=== PATIENT | male | born 1955 | race African-American/Black ===

== ENCOUNTER 2016-08-07 08:34 | Inpatient (IN) ==
[2016-08-07] MEDS ORDERED: KETOROLAC 30 MG/1 ML VIAL IV STA (09:05)
[2016-08-07] MEDS ORDERED: methylPREDNISolone SOD SUC 125 MG/2 ML VIAL IV STA (09:05)
[2016-08-07] MEDS ORDERED: ONDANSETRON 4 MG/2 ML VIAL IV STA (09:05)
[2016-08-07] MEDS ORDERED: ALBUTEROL/IPRATROPIUM 3 ML NEB RESP TX STA (09:05)
[2016-08-07] MEDS ORDERED: ASPIRIN 325 MG TABLET PO STA (09:05)
--- NOTE | 2016-08-07 09:10 | EKG Report ---
Stationary ECG Study [facility] ER Test Date: 08/07/2016 8:45:57 AM Pat Name: GUY JOAQUIN Department: Room: Gender: M Card Painter: : 1955 Requested by: Salomón Ann Order Number: [id number] Reading MD: LALO WELCH Intervals [place] Rate: 111 P: 63 [place]: 134 QRS: 110 QRSD: 101 T: -18 QT: 304 QTc: 370 Interpretive Statements SINUS TACHYCARDIA WITH OCCASIONAL PVCS ANS PACS Electronically Signed On 08-08-16 12:02:07 CDT by LALO WELCH [email or web address]
--- NOTE | 2016-08-07 09:11 | Emergency Department Note ---
Arrival - Arrival Chief Complaint: Chest Pain Stated Complaint: SOB-CP ED Nursing Triage Note: pt to er 19 via wc with c/o having sob and cp, pt states onset at 0530 with pain to left chest. pt states he is on home 02 @ 2Lnc. Mode of Arrival: Wheelchair Limitations: No Limitations Source: Patient Time Seen by Provider: 08/07/16 09:05 - History of Present Illness HPI Narrative: This 60-year-old black male presents with a history of left-sided chest pain not associated with nausea, vomiting, or diaphoresis upon awakening today which resolved by the time he reached the emergency room. He denies a history of any cardiac disease but does have a significant history for sarcoid and associated asthma to the severity that he is on home O2. The patient describes the pain is along the left anterior axillary line with some degree of mechanical pertubation. He denies chills, fever, purulence, sinus symptoms, or significant increase in wheezing. Currently he appears medically stable Onset (ago): hour(s) (Patient presents 4 hours after onset of symptoms) Allergies/Adverse Reactions: Allergies Allergy/AdvReac Type Severity Reaction Status Date / Time No Known Allergies Allergy Unverified 05/16/16 23:30 Home Medications: Home Medications Medication Instructions Recorded Confirmed Type Albuterol Inhaler [Proventil 1 puff PO Q3-4H PRN 05/17/16 05/17/16 History Inhaler] Albuterol Neb [Proventil Neb] 1 packet PO Q3-4H PRN 05/17/16 05/17/16 History Fluticasone 50 Mcg Nasal [place] 1 puff PO DAILY 05/17/16 05/17/16 History [Flonase Nasal [place]] Fluticasone/Salmeterol 500-50 1 puff PO DAILY 05/17/16 05/17/16 History [Advair 500-50] Triamterene/Hydrochlorothiazid 1 tablet PO DAILY 05/17/16 05/17/16 History [Triamterene-Hctz 37.5-25 mg Tb] Cefuroxime Tab [Ceftin] 500 mg PO BID #14 tablet 05/20/16 Rx Montelukast Tab [Singulair Tab] 10 mg PO BID #60 tablet 05/20/16 Rx Pantoprazole Tab [Protonix Tab] 40 mg PO DAILY #30 tablet 05/20/16 Rx predniSONE TAB [PredniSONE] 20 mg PO DAILY #30 tablet 05/20/16 Rx Review of System - Review of System 12 point system: reviewed and no additional remarkable complaints except as stated - Review of System Constitutional: Present: as per HPI Respiratory: Present: as per HPI Cardiovascular: Present: as per HPI Gastrointestinal: Present: as per HPI Medical,Surgical,& Family Hx - Medical History Cardio: History of: Hypertension Respiratory: History of: Respiratory Problems (sarcoidosis) - Surgical History Abdominal Surgeries: Surgical HX of: Abdominal Surgery - Family History Family History: Reports;: Family Cancer, Family Hypertension - Social History Smoking Status: Never smoker Frequency of Alcohol Use: None Type of Drug Use: None Exam Physical Examination: GENERAL: Well developed, well nourished black male in no acute distress. HEENT: Normocephalic. No trauma. Moist mucous membranes. EOMI. PERRLA. ENT NML NECK: Supple. No adenopathy. CARDIAC: Regular. No murmurs. Heart rate 110 CHEST: Diffuse expiratory wheezes. No respiratory distress. O2 sat on room air 80%. Tender along the lower left anterior axillary line. ABDOMEN: Soft. Nontender. Active bowel sounds. EXTREMITIES: No trauma. Normal ROM. No pedal edema. SKIN: No diaphoresis. No rash. NEURO: Alert. Neuro intact. No focal deficits. Vital Signs: Vital Signs Temperature 97.8 F 08/07/16 08:42 Pulse Rate 109 H 08/07/16 08:42 Respiratory Rate 30 H 08/07/16 08:49 Blood Pressure 138/87 08/07/16 08:42 O2 Sat by Pulse Oximetry 79 L 08/07/16 08:42 Course - Reevaluation(s) Reevaluation #1: Discussed with patient the need for pulmonary cleanup as well as addressing cardiac problems including bump in troponins. - Consultations Consultation #1: Discussed with hospitalist service who will admit for further evaluation treatment. Results - Labs CBC & BMP: 08/07/16 08:48 08/07/16 08:48 Labs: I reviewed the laboratory and noted the elevated white blood cell count and bump in troponins - Impressions EKG: Sinus tachycardia at 110 with occasional PVC and frequent PACs with the appearance of an attempt to break into atrial fibrillation. Normal AR interval and QRS duration. Evidence of right ventricular hypertrophy. Nonspecific ST changes with no acute injury pattern noted. - Diagnostic Findings Procedure: Chest x-ray: image reviewed by me, report reviewed by me (Severe scarring especially of the right upper lobe secondary to sarcoid unchanged on interval comparison.) Disposition Clinical Impression: Exacerbation of asthma, Abnormal cardiac enzymes, Abnormal cardiac rhythm, Sarcoidosis Case discussed with: patient, patient's family Condition: Stable Time of Disposition: 10:10
[2016-08-07] MEDS ORDERED: TERBUTALINE 1 MG/1 ML VIAL SUBCUT ONE (09:13)
[2016-08-07] MEDS ORDERED: KETOROLAC 30 MG/1 ML VIAL ONE (09:13)
[2016-08-07] MEDS ORDERED: ONDANSETRON 4 MG/2 ML VIAL ONE (09:13)
[2016-08-07] MEDS ORDERED: methylPREDNISolone SOD SUC 125 MG/2 ML VIAL ONE (09:14)
[2016-08-07] MEDS ORDERED: ASPIRIN 325 MG TABLET ONE (09:14)
[2016-08-07 09:17] LABS: Basophils # 0.1 10*3/uL (0.0-0.2); Basophils % 0.5 % (0.0-0.8); Eosinophils # 0.1 10*3/uL (0.0-0.87); Eosinophils % 0.5 % (0.00-10.9); Hematocrit 49.1 VOL% (42.0-52.0); Hemoglobin 15.9 GM/DL (14.0-18.0); Immature Granulocytes % 2.6 %; Immature Granulocytes Absolute 0.34 #; Lymphocytes # 1.3 10*3/uL (1.4-4.0); Lymphocytes % 9.5 % (21.2-54.2); Mean Corpuscular HGB Conc 32.4 GM/DL (32-36); Mean Corpuscular Hemoglobin 30 PG (27-34); Mean Corpuscular Volume 92.1 FL (87-102); Monocytes % 7.7 % (1.7-12.7); Neutrophils # 10.4 10*3/uL (1.4-7.4); Neutrophils % 79.2 % (38.7-73.9); Platelet Count 181 T/CUMM (130-400); Red Blood Count 5.33 MC/CUMM (3.8-5.5); Red Cell Distribution Width 12.8 % (9.3-17.3); White Blood Count 13.1 T/CUMM (4-12)
[2016-08-07] MEDS: TERBUTALINE 1 MG/1 ML VIAL SUBCUT SCH ×2 (09:20→10:00)
[2016-08-07 09:25] LABS: PT Patient Result 10.7 SECS; Partial Thromboplastin Time 23.6 SECS (0-40)
[2016-08-07 09:29] LABS: Albumin 3.5 G/DL (3.4-5.0); Bilirubin,Total 1.1 MG/DL (0.2-1.0); Calcium 8.7 MG/DL (8.5-10.1); Osmolality,Calculated 288.1 MOS/KG (273-304); Potassium 4.1 MMOL/L (3.5-5.1); Total Protein 6.3 G/DL (6.4-8.3)
[2016-08-07 09:32] LABS: Troponin I Only 0.073 NG/ML (0.00-0.045)
--- NOTE | 2016-08-07 09:43 | XRay Report ---
Portable chest Date: 08/07/2016 Clinical history: Chest pain Comparison: 05/19/2016 Technique: Portable AP sitting chest Findings: The heart is borderline in size with uncoiling of the aorta. Bullous emphysema with extensive chronic scarring. Persistent multifocal irregular parenchymal densities persist with tenting of the diaphragm bilaterally. Chronic blunting of the costophrenic angles. No significant change in the appearance of the mediastinum or osseous structures. Impression: Bullous emphysema with chronic extensive interstitial scarring with no significant change in the appearance of the chest when compared to the previous exam. PROCEDURE INTERPRETED AT [facility] DEPARTMENT OF RADIOLOGY Final Report Signed by: Dr. Laisha Boateng
[2016-08-07] MEDS ORDERED: cefTRIAXone 1,000 MG in SODIUM CHLORIDE 0.9% 100 ML IV STA (10:11)
[2016-08-07 10:17] LABS: Apearance,Urine Slightly Hazy (Clear); Bilirubin,Urine Negative (Negative); Blood, Urine Negative (Negative); Glucose,Urine (UA) Negative (Negative); Hyaline Casts,Urine 1 /LPF (0-3); Ketones,Urine Negative (Negative); Mucus,Urine Occasional /LPF (Occasional); Nitrite,Urine Negative (Negative); Protein,Urine 100 MG/DL; RBC,Urine <1 /HPF (0-4); Squamous Epithelial Cell,Urine Occasional /HPF (0-10); Urine Color Yellow (Yellow); Urine Specific Gravity 1.019 (1.001-1.035); Urine Urobilinogen < 2.0 EU/DL (0.2-1.0); WBC,Urine 1 /HPF (0-6)
[2016-08-07 10:23] LABS: Barbiturates Screen,Urine Negative (Negative); Benzodiazepines Screen,Urine Negative (Negative); Cannabinoid Screen,Urine Negative (Negative); Opiate Screen,Urine Negative (Negative); Phencyclidine Screen,Urine Negative (Negative)
[2016-08-07] MEDS ORDERED: cefTRIAXone 1,000 MG VIAL ONE (10:28)
[2016-08-07] MEDS ORDERED: CEFUROXIME 500 MG TABLET PO PRN (10:52)
[2016-08-07] MEDS ORDERED: ALBUTEROL 0.63 MG/3 ML NEB RESP TX PRN (10:52)
[2016-08-07] MEDS ORDERED: ALBUTEROL 2.5 MG/3 ML NEB RESP TX PRN (10:52)
[2016-08-07] MEDS ORDERED: FLUTICASONE/SALMETEROL 500-50 DISKUS 14 DOSE INH SCH (11:00)
[2016-08-07] MEDS ORDERED: TRIAMTERENE/HCTZ 37.5-25 MG TABLET PO SCH (11:00)
[2016-08-07] MEDS ORDERED: methylPREDNISolone 4 MG TABLET PO SCH (11:00)
[2016-08-07] MEDS ORDERED: predniSONE 20 MG TABLET PO SCH (11:00)
--- NOTE | 2016-08-07 11:03 | Hospitalist History & Physical ---
<Olivia Mckeon - Last Filed: 08/07/16 10:57> Assessment and Plan - Time spent with patient Time spent with patient: Less than 30 minutes (1) Elevated troponin Status: Acute Assessment and plan: Patient has complex respiratory issues but in light of elevated troponin and abnormal EKG would be safe to go ahead and admit patient and get a cardiology consult. Further recommendations per Dr. Can Current Visit: Yes (2) Hypertension Status: Acute Assessment and plan: Blood pressures are stable so we will restart his home meds and monitor. Current Visit: No (3) Sarcoidosis Status: Acute Assessment and plan: chronic sarcoid being followed by dr jason. will cont his home regimen. Current Visit: No (4) Acute asthma exacerbation Status: Acute Assessment and plan: restart his home meds and add additional breathing treatments. pt still has some expiratory wheeze but he does feel better and feels this is his baseline. further recs per dr can. Current Visit: Yes History of Present Illness Chief complaint: Shortness of breath and chest pain History of present illness: 60-year-old -Niue[place] male with history of sarcoidosis and asthma presenting to the ED with complaints of shortness of breath, wheezing, and chest pain that started this morning. Patient is a patient of Dr. Jason's from pulmonary who normally takes steroids and inhaled breathing treatments regularly. He states when it was worsened this morning he got up and took his usual medicine with no decrease in his symptoms. Came to the emergency room and since then his chest pain has resolved. He described it as left-sided chest pain that was dull and continuous. He has a mild bump in his troponins and his EKG is showing some sinus tachycardia with PVCs, right-sided hypertrophy , and nonspecific ST and T-wave changes. This may be a slight change from the previous one in April when he was admitted for pneumonia. he received duonebs, rocephin, brethine, and solumedrol in ED. Upon exam he states he feels much better with no shortness of breath or chest pain. He does have some bilateral rails and expiratory wheeze. He denies headaches difficulty swallowing chest pain at this time, abdominal pain, or lower extremity edema. Dr. Can has been asked to admit to tune up his lungs and follow his abnormal EKG and troponins. Home Medications Medication Instructions Recorded Confirmed Type Albuterol Inhaler [Proventil 1 puff PO Q3-4H PRN 05/17/16 08/07/16 History Inhaler] Albuterol Neb [Proventil Neb] 1 packet PO Q3-4H PRN 05/17/16 08/07/16 History Fluticasone 50 Mcg Nasal [place] 1 puff PO QPM 05/17/16 08/07/16 History [Flonase Nasal [place]] Fluticasone/Salmeterol 500-50 1 puff PO QAM 05/17/16 08/07/16 History [Advair 500-50] Triamterene/Hydrochlorothiazid 1 tablet PO QAM 05/17/16 08/07/16 History [Triamterene-Hctz 37.5-25 mg Tb] predniSONE TAB [PredniSONE] 20 mg PO DAILY #30 tablet 05/20/16 08/07/16 Rx Cefuroxime Tab [Ceftin] 500 mg PO BID PRN 08/07/16 08/07/16 History methylPREDNISolone 8 mg PO QAM 08/07/16 08/07/16 History [Methylprednisolone] Allergies Allergy/AdvReac Type Severity Reaction Status Date / Time No Known Allergies Allergy Unverified 05/16/16 23:30 Medical,Surgical,& Family Hx - Medical History Cardio: History of: Hypertension Respiratory: History of: Asthma, Respiratory Problems (sarcoidosis) - Surgical History Abdominal Surgeries: Surgical HX of: Abdominal Surgery - Family History Family History: Reports;: Family Cancer, Family Hypertension - Social History Smoking Status: Never smoker Frequency of Alcohol Use: None Type of Drug Use: None Review of systems: A complete 10 system review of systems was obtained and pertinent positives and negatives are listed in HPI Exam - Constitutional Exam: 60-year-old -[place] male, no acute distress, alert and oriented Family is present Constitutional System: No distress. No tremulousness. Head: Normocephalic, atraumatic. Ears, Nose and Throat System: No evidence of Otitis or Mastoiditis. No epistaxis or discharge Eyes System: Pupils equal, round, and reactive. Extraocular muscles intact. Neck: Supple, without adenopathy, No jugular venous distention. No thyromegaly, neck mass, or prior surgery apparent. Respiratory System: Chest bilateral rales and expiratory wheeze to auscultation. Cardiovascular System: Heart with tachycardia with few PVCs. No murmur. GI System: Abdomen soft, nontender. Normo active bowel sounds present. Musculoskeletal System: limbs with no pedal edema. Full distal pulses. Neurological System: No discernable sensory deficit. No aphasia Psychiatric System: Conversation is rational Results - Labs CBC & BMP: 08/07/16 08:48 08/07/16 08:48 Lab Results: I have reviewed the past 24 hour labs - EKG EKG shows: tachycardia - Diagnostic Findings Procedure: Chest x-ray: report reviewed by me (Bullous emphysema with chronic extensive interstitial scarring) <Asif Can - Last Filed: 08/07/16 11:54> History of Present Illness History of present illness: Mr. Stapleton is a 60 year old male with a previous history of sarcoidosis. He has no previous history of heart disease or chest pain. He awoke this morning with a left sided aching chest pain that persisted for several hours. He is now free of chest pain. PE showed a normal cardiac and pulmonary exam. ECG showed NSSTT abnormalities. There is a mild elevation of troponin. He is being admitted for further evaluation including a cardiology consultation. Results - Labs CBC & BMP: 08/07/16 08:48 08/07/16 08:48
--- NOTE | 2016-08-07 13:32 | Cardiology Consult Note ---
<Karly Alvarado E - Last Filed: 08/07/16 13:23> Assessment and Plan - Time spent with patient Time spent with patient: Greater than 30 minutes (1) Chest pain Status: Acute Assessment and plan: SEE PLAN OF CARE LISTED BELOW Current Visit: Yes (2) SOB (shortness of breath) Status: Acute Assessment and plan: SEE PLAN OF CARE LISTED BELOW Current Visit: Yes (3) Sarcoidosis Status: Chronic Assessment and plan: SEE PLAN OF CARE LISTED BELOW Current Visit: No (4) Hypertension Status: Chronic Assessment and plan: SEE PLAN OF CARE LISTED BELOW Current Visit: No (5) Elevated troponin Status: Acute Assessment and plan: SEE PLAN OF CARE LISTED BELOW Current Visit: Yes (6) Acute asthma exacerbation Status: Acute Assessment and plan: SEE PLAN OF CARE LISTED BELOW Current Visit: Yes History of Present Illness - Data of Consult Patient: new to practice Consult date: 08/07/16 Requesting Physician: Asif Can Primary care physician: Ravin Fragoso - Consult Narrative Reason for consult: elevated troponin History of present illness: Mr. Stapleton is a very pleasant 60 year old male who has never seen cardiology. Risk factors include: Hypertension, one brother with premature coronary artery disease requiring stents at age 38. History of sarcoidosis of the lungs, asthma. He works for the [employer], originally from [place], [place]. This morning, around 0 500, patient was awakened with left chest pain located under the left axilla area. He described this as a sharp aching pain which did not radiate. He has chronic intermittent shortness of breath and he felt short of breath with the discomfort. This lasted approximately 1-2 hours and he felt as if he should be evaluated in the emergency department because he had never had this type of discomfort before. He can identify no aggravating nor any alleviating factors. He rates his discomfort as a 7 on a scale of 1-10. He is currently chest pain-free. First set of cardiac biomarkers reveals a troponin of 0.073, CPK 64 and CK-MB 21. EKG reveals nonspecific ST changes. Cardiology has been asked to evaluate for chest pain, shortness of breath, elevated troponin and abnormal EKG. Mr. Stapleton acknowledges that it is difficult to distinguish if there has been a change in his exercise tolerance as he always has shortness of breath. He does in fact have oxygen at home that he uses intermittently. Definitely, with exertion his shortness of breath has worsened over the past 1-2 years. Again, he has never had chest discomfort before. He has never had heart catheterization nor a stress test. ASSESSMENT/PLAN: 1. CHEST PAIN -not reproducible to palpation or movement. He is currently chest pain-free. His troponin is mildly elevated in an indeterminate range. I have ordered another set to be drawn now. Depending on the results of the cardiac biomarkers additional recommendations will unfold by Dr. Kaplan. Add d- dimer to labs. Depending on additional information, may need echo. 2. ELEVATED TROPONIN -in an indeterminate range. CPK and CK-MB are within normal limits. I have ordered another set of CIEs to be drawn male 3. SOB -chronic and thought to be related to his sarcoid state and asthma. He does have a cough and produces a clear sputum frequently. 4. SARCOIDOSIS -sees Dr. Fragoso routinely 5. ASTHMA - continue current plan of care. CC: Asif Can - Home Medications and Allergies Home Medications: Home Medications Medication Instructions Recorded Confirmed Type Albuterol Inhaler [Proventil 1 puff PO Q3-4H PRN 05/17/16 08/07/16 History Inhaler] Albuterol Neb [Proventil Neb] 1 packet PO Q3-4H PRN 05/17/16 08/07/16 History Fluticasone/Salmeterol 500-50 2 puff PO QAM 05/17/16 08/07/16 History [Advair 500-50] Triamterene/Hydrochlorothiazid 1 tablet PO QAM 05/17/16 08/07/16 History [Triamterene-Hctz 37.5-25 mg Tb] predniSONE TAB [PredniSONE] 20 mg PO DAILY #30 tablet 05/20/16 08/07/16 Rx Cefuroxime Tab [Ceftin] 500 mg PO BID PRN 08/07/16 08/07/16 History methylPREDNISolone 8 mg PO QAM PRN 08/07/16 08/07/16 History [Methylprednisolone] Allergies/Adverse Reactions: Allergies Allergy/AdvReac Type Severity Reaction Status Date / Time No Known Allergies Allergy Unverified 05/16/16 23:30 Review of systems: REVIEW OF SYSTEMS: - Constitutional Constitutional: Present: Fatigue. Absent: syncope, anorexia, night sweats - EENT Eyes: Absent: blurry vision, loss of vision, diplopia Ears: Absent: decreased hearing, ear pain, ear discharge - Cardiovascular Cardiovascular: Denies: chest pain with exertion. Chronic dyspnea on exertion and frequently at rest. Denies edema, palpitations. Absent: chest pain with deep breath, claudication - Respiratory Respiratory: Present: LOGAN, cough. Absent: wheezing, hemoptysis, change in phlegm color - Gastrointestinal Gastrointestinal: Denies constipation. Recently had nausea absent: abdominal pain, hematemesis, hematochezia, melena, change in bowel habits - Genitourinary Genitourinary: Absent: difficulty urinating, dysuria, urinary hesitancy, flank pain - Musculoskeletal Musculoskeletal: Denies: back pain Absent: joint swelling, muscle cramps, muscle weakness - Neurological Neurological: Present: normal gait without frequent falls. Absent: dizziness, hemiparesis - Psychiatric Psychiatric: Absent: anxiety, depression, difficulty concentrating - Endocrine Endocrine: Present: fatigue. Absent: cold intolerance, heat intolerance, polyuria, polyphagia, polydipsia - Hematologic/Lymphatic Hematologic/Lymphatic: Present: easy bruising. Absent: easy bleeding, easy bruisability -Integumentary Integumentary: Absent: lesions, rashes, skin breakdown Medical,Surgical,& Family Hx - Medical History Cardio: History of: Hypertension No history of: Cardiac Dysrhythmia, CAD, AR Respiratory: History of: Asthma, Respiratory Problems (sarcoidosis) - Surgical History Abdominal Surgeries: Surgical HX of: Abdominal Surgery - Family History Family History: Reports;: Family Cancer, Family Diabetes, Family Hypertension - Social History Smoking Status: Never smoker Have you smoked in the last 12 months: No Frequency of Alcohol Use: None Type of Drug Use: None Marital Status: Lives With:: Spouse Functional capacity: independent ambulation Physical Examination Vital Signs Temp Pulse Resp BP Pulse Ox 97.8 F 109 H 22 138/87 79 L 08/07/16 08:42 08/07/16 08:42 08/07/16 08:42 08/07/16 08:42 08/07/16 08:42 General: [Appears well with no apparent distress.] [Pleasant and cooperative. ] [Appears comfortable.] HEENT: [PERRL, normocephalic, atraumatic. Wearing glasses. Mucous membranes moist. No jaundice noted. Conjunctiva moist and clear, sclerae anicteric] Neck: No JVD/HJR, no thyromegaly or lymphadenopathy noted. No carotid bruit appreciated Cardiac: [Regular rate and rhythm.] [No murmur rub or gallop.] Lungs: [End expiratory wheezes noted greater on left than right. No rales. ] Using oxygen intermittently. Abdomen: Soft, bowel sounds normoactive. Nontender and nondistended. No abdominal bruit or thrill noted. No masses noted. Musculoskeletal: No fluid collection. Decreased range of motion is noted. Extremities: No clubbing, cyanosis noted. [ No edema noted.] Upper extremity pulses 2+. Lower extremity pulses 2+. Capillary refill less than 3 seconds. Skin: No unusual lesions or rashes. No skin breakdown appreciated. Neuro: Awake, alert and oriented 3. Moves all extremities well without hemiparesis or paralysis. No essential tremor is appreciated. Result/EKG - Labs CBC & BMP: 08/07/16 08:48 08/07/16 08:48 Lab Results: I have reviewed the past 24 hour labs - Diagnostic Findings Procedure: Chest x-ray: report reviewed by wa - EKG EKG results: interpreted by wa EKG shows: sinus rhythm <Jules Kaplan Petar - Last Filed: 08/07/16 16:54> History of Present Illness - Consult Narrative History of present illness: Mr. Stapleton is a 60 year old male whom I have personally interviewed and examined and reviewed his chart. I discussed the patient's case with Karly Alvarado ZOOGLER. The patient presented with atypical chest pain for cardiac. His ECG was really unchanged her prior ECGs. He did have isolated PVC and PAC. He' s had no prior cardiac history. He had no angina symptomatology. He has chronic lung disease with sarcoidosis. Certainly on exam he has findings of chronic lung disease. He also is noted on exam to have tenderness with palpation around the left parascapular area especially laterally and inferiorly that reproduces the pain he is complaining of. His cardiac enzymes revealed a troponin is to be trivially increased and flat. His CPK-MB was normal and actually decreased on the second set. His CPKs were normal. This patient's findings do not seem be that of acute ischemia or underlying cardiac ischemia. My recommendations are being an outpatient stress test which can do in our office and I can follow the patient thereafter. I do not think he needs further evaluation as an inpatient. As noted do not think that his symptoms are cardiac in nature. I think is reasonable to discharge this patient. We will need to make a ratio for a stress test as an outpatient. Thank you for allowing us to see Mr. Stapleton. CC: Asif Can Physical Examination Vital Signs Temp Pulse Resp BP Pulse Ox 97.8 F 109 H 22 138/87 79 L 08/07/16 08:42 08/07/16 08:42 08/07/16 08:42 08/07/16 08:42 08/07/16 08:42 Result/EKG - Labs CBC & BMP: 08/07/16 08:48 08/07/16 08:48 Labs: Laboratory Results - last 24 hr 08/07/16 13:13 Total Creatine Kinase 55 CK-MB (CK-2) 1.7 Troponin I 0.081 H
[2016-08-07 13:56] LABS: Troponin I Only 0.081 NG/ML (0.00-0.045)
[2016-08-07 17:49] VITALS: BP 138/88
--- NOTE | 2016-08-07 17:53 | Discharge Summary ---
Hospital Course - Hospital Course Hospital Course: Mr. Stapleton is a 60-year-old -Armenian male with history of sarcoidosis and asthma presented to the ED with increasing shortness of breath and chest pain. He did have a mild elevation of his troponins and an abnormal EKG so he was admitted for further workup. Dr. Kaplan from cardiology was consulted. Repeat troponins were negative and Dr. Kaplan felt his EKG was benign. Patient is feeling much better with no complaints of shortness of breath or chest pain at this time. Okay for discharge home with a follow-up with cardiology in outpatient for stress test. - Time spent with patient Time with patient DS: Less than 30 minutes Diagnosis - Discharge Diagnosis (1) Elevated troponin Status: Resolved (2) Hypertension Status: Chronic (3) Sarcoidosis Status: Chronic (4) Acute asthma exacerbation Status: Resolved Specialty Discharge - Follow Up or Referrals Follow up with: Jules Kaplan MD [Physician] - 1 Week (Follow-up with Dr. Kaplan 1 week with a stress test) Discharge Plan - Discharge Data Disposition: Disch To Home/Self Care Condition at Discharge: Stable Discharge Diet: advance to your usual diet Activity: resume usual activities as tolerated Driving: no restrictions Contact your physician if you experience:: Shortness of breath, pain uncontrolled by pain medications - Discharge Medications Continue Albuterol Inhaler [Proventil Inhaler] 1 puff PO Q3-4H PRN PRN Reason: Shortness Of Breath/Wheezing Cefuroxime Tab [Ceftin] 500 mg PO BID PRN PRN Reason: ASTHMA Triamterene/Hydrochlorothiazid [Triamterene-Hctz 37.5-25 mg Tb] 1 tablet PO QAM Fluticasone/Salmeterol 500-50 [Advair 500-50] 2 puff PO QAM Albuterol Neb [Proventil Neb] 1 packet PO Q3-4H PRN PRN Reason: Shortness Of Breath/Wheezing predniSONE TAB [PredniSONE] 20 mg PO DAILY #30 tablet methylPREDNISolone [Methylprednisolone] 8 mg PO QAM PRN PRN Reason: sob - Follow Up or Referral Follow Up: Jules Kaplan MD [Physician] - 1 Week (Follow-up with Dr. Kaplan 1 week with a stress test) - Forms/Instructions Exam - Constitutional Vitals: Period Temp Pulse Resp BP Sys/Rowland Pulse Ox Last 24 Hr 98.6 F-99.2 F 90-98 18-19 117-138/69-88 Exam: 60-year-old -Armenian male, no acute distress Chest with mild expiratory wheeze CV regular rate and rhythm Abdomen soft and nontender Extremities with no edema Discharge Results Labs on day of discharge: Labs from last 24 hours 08/07/16 13:13 Total Creatine Kinase 55 CK-MB (CK-2) 1.7 Troponin I 0.081 H DS: Provider Date of admission: 08/07/16 10:11 Primary care physician: . No PCP Attending physician on admission: Asif Can Consults: 08/07/16 11:16 Consult to Physician [CONS] Routine Comment: trop bump, cp, abnormal ekg Consulting Provider: Cardiology - [facility] When should Consulting Provider be notified: Now Consult Notification Comment: Notified [facility] cardiology at 1315 spoke with Mary , she called Dr Kaplan but he did not answer, she said that she would page Dr Kaplan. At 1323 Dr Kaplan called back and he said that he new about the consult and Karly should be seeing him soon. Discharging clinician: YOBANI Duque Expected date of discharge: 08/07/16
[2016-08-07] MEDS ORDERED: FLUTICASONE 50 MCG NASAL SPRAY 16 GM BOTTLE BOTH NARES SCH (19:00)
== END 2016-08-07 18:00 | disposition left against medical advice (07) | DRG 203 ==
LOC: N.ED 08:34 → N.EDINP 10:11 → N.ICU 10:30 → N.5E 10:54

== ENCOUNTER 2016-08-12 11:33 | Inpatient (IN) ==
[2016-08-12] MEDS ORDERED: FUROSEMIDE 100 MG/10 ML VIAL IV STA (12:08)
[2016-08-12] MEDS ORDERED: methylPREDNISolone SOD SUC 125 MG/2 ML VIAL IV STA (12:08)
[2016-08-12] MEDS ORDERED: LEVOFLOXACIN INJ 750 MG in PREMIX 1 EACH IV STA (12:08)
--- NOTE | 2016-08-12 12:13 | EKG Report ---
Stationary ECG Study [facility] ER Test Date: 08/12/2016 12:01:38 PM Pat Name: GUY JOAQUIN Department: Room: Gender: M [employer]: : 1955 Requested by: Salomón Ann Order Number: [id number] Reading MD: BRIEN CORADO Intervals [place] Rate: 102 P: 61 [place]: 133 QRS: 96 QRSD: 102 T: 28 QT: 340 QTc: 399 Interpretive Statements SINUS TACHYCARDIA BORDERLINE RIGHT AXIS DEVIATION Electronically Signed On 08-14-16 21:25:21 CDT by BRIEN CORADO [email or web address]
--- NOTE | 2016-08-12 12:15 | Emergency Department Note ---
Arrival - Arrival Chief Complaint: Shortness of Breath Stated Complaint: SOB/HIGH BS ED Nursing Triage Note: HX OF SARCOIDOSIS, SOB WORSE, WENT TO DR LOYD OFFICE AND WAS SENT TO ER, PER PT HIS NORMAL SATS ARE AROUND 90 DROPPING IN LOWER 80'S FOR PAST SEVERAL DAYS, Mode of Arrival: Wheelchair Limitations: No Limitations Source: Patient Time Seen by Provider: 08/12/16 12:08 - History of Present Illness HPI Narrative: This 60-year-old black male with a long-standing history of pulmonary sarcoidosis, now oxygen dependent presents with one-week of progressive dyspnea on exertion and at rest, almost continuous wheezing, and O2 saturations on room air that have dropped to low 80s after hanging around 90% on home O2 for the last several months. He was admitted for short stay observation 1 week ago for this similar complaint; however, because of a bump in his troponins, he was evaluated for cardiac disease with no significant intervention of his respiratory problem. Subsequent cardiac enzymes were negative and the patient was discharged within 24 hours. He presents today because of persistence and to a mild degree progression of symptoms. He does report now of having lower extremity swelling as well as a dry cough. He denies chills, fever, chest pain , diaphoresis, nausea, or vomiting at this time. At rest in bed he is in no acute distress. Onset (ago): week(s) (Patient presents 1 week post onset of symptoms.) Consistency: constant Severity: moderate Allergies/Adverse Reactions: Allergies Allergy/AdvReac Type Severity Reaction Status Date / Time No Known Allergies Allergy Verified 08/12/16 11:54 Home Medications: Home Medications Medication Instructions Recorded Confirmed Type Albuterol Inhaler [Proventil 1 puff PO Q3-4H PRN 05/17/16 08/12/16 History Inhaler] Albuterol Neb [Proventil Neb] 1 packet PO Q3-4H PRN 05/17/16 08/12/16 History Fluticasone/Salmeterol 500-50 2 puff PO QAM 05/17/16 08/12/16 History [Advair 500-50] Triamterene/Hydrochlorothiazid 1 tablet PO QAM 05/17/16 08/12/16 History [Triamterene-Hctz 37.5-25 mg Tb] predniSONE TAB [PredniSONE] 20 mg PO DAILY #30 tablet 05/20/16 08/12/16 Rx Cefuroxime Tab [Ceftin] 500 mg PO BID PRN 08/07/16 08/12/16 History methylPREDNISolone 8 mg PO QAM PRN 08/07/16 08/12/16 History [Methylprednisolone] Review of System - Review of System 12 point system: reviewed and no additional remarkable complaints except as stated - Review of System Constitutional: Present: as per HPI Respiratory: Present: as per HPI Cardiovascular: Present: as per HPI Gastrointestinal: Present: as per HPI Medical,Surgical,& Family Hx - Medical History Cardio: History of: Hypertension No history of: Cardiac Dysrhythmia, CAD, [place] Respiratory: History of: Asthma, Respiratory Problems (sarcoidosis) - Surgical History Abdominal Surgeries: Surgical HX of: Abdominal Surgery - Family History Family History: Reports;: Family Cancer, Family Diabetes, Family Hypertension - Social History Smoking Status: Never smoker Exam Physical Examination: GENERAL: Well developed, well nourished black male in no acute distress. HEENT: Normocephalic. No trauma. Moist mucous membranes. EOMI. PERRLA. ENT NML NECK: Supple. No adenopathy. CARDIAC: Regular. No murmurs. CHEST: Bibasilar Velcro rales. No respiratory distress. ABDOMEN: Soft. Nontender. Active bowel sounds. EXTREMITIES: No trauma. Normal ROM. 1+ pedal edema. SKIN: No diaphoresis. No rash. NEURO: Alert. Neuro intact. No focal deficits. Vital Signs: Vital Signs Temperature 98 F 08/12/16 12:28 Pulse Rate 92 H 08/12/16 12:28 Respiratory Rate 25 H 08/12/16 12:29 Blood Pressure 138/97 08/12/16 12:28 O2 Sat by Pulse Oximetry 87 L 08/12/16 11:44 Course - Reevaluation(s) Reevaluation #1: Discussed with patient the need for hospitalization given the multiple loose ends that need to be straightened out. - Consultations Consultation #1: Discussed with hospitalist service who will admit for further evaluation treatment. Results - Labs CBC & BMP: 08/12/16 12:08 08/12/16 12:08 Labs: I have reviewed the lab and noted the elevated white blood cell count, elevated blood sugar, and bump in troponins. - Impressions EKG: Sinus tachycardia with normal AK interval and QRS duration. Right axis deviation. Nonspecific ST changes. No acute injury pattern noted. - Diagnostic Findings Procedure: Chest x-ray: image reviewed by me, report reviewed by me (Evidence of advanced scarring from sarcoidosis. Although not mentioned by the radiologist it would appear there is an increasing density in the right lower lobe.) Disposition Clinical Impression: Pulmonary sarcoidosis, Hyperglycemia, Abnormal cardiac enzyme Case discussed with: patient, patient's family Disposition: Still a Patient Condition: Stable Time of Disposition: 13:02
[2016-08-12 12:29] LABS: Basophils # 0.1 10*3/uL (0.0-0.2); Basophils % 0.6 % (0.0-0.8); Hematocrit 48.8 VOL% (42.0-52.0); Hemoglobin 15.7 GM/DL (14.0-18.0); Immature Granulocytes % 6.8 %; Immature Granulocytes Absolute 0.97 #; Lymphocytes # 0.4 10*3/uL (1.4-4.0); Lymphocytes % 2.7 % (21.2-54.2); Mean Corpuscular HGB Conc 32.2 GM/DL (32-36); Mean Corpuscular Hemoglobin 30 PG (27-34); Mean Platelet Volume 11.6 FL (9.6-12.0); Monocytes # 0.3 10*3/uL (0.11-0.8); Monocytes % 2.3 % (1.7-12.7); Neutrophils # 12.5 10*3/uL (1.4-7.4); Neutrophils % 87.6 % (38.7-73.9); Platelet Count 206 T/CUMM (130-400); Red Blood Count 5.19 MC/CUMM (3.8-5.5); Red Cell Distribution Width 12.7 % (9.3-17.3); White Blood Count 14.3 T/CUMM (4-12)
[2016-08-12] MEDS ORDERED: ALBUTEROL 2.5 MG/3 ML NEB RESP TX SCH (12:30)
[2016-08-12] MEDS: TERBUTALINE 1 MG/1 ML VIAL SUBCUT SCH ×3 (12:30→16:35)
[2016-08-12 12:33] LABS: Apearance,Urine CLEAR (Clear); Bilirubin,Urine Negative (Negative); Blood, Urine Negative (Negative); Glucose,Urine (UA) >=500 mg/dL (Negative); Ketones,Urine 5 mg/dL (Negative); Nitrite,Urine Negative (Negative); Protein,Urine 30 MG/DL; Urine Color Straw (Yellow); Urine Specific Gravity 1.028 (1.001-1.035); Urine Urobilinogen < 2.0 EU/DL (0.2-1.0)
[2016-08-12] MEDS ORDERED: TERBUTALINE 1 MG/1 ML VIAL SUBCUT ONE (12:37)
[2016-08-12] MEDS ORDERED: LEVOFLOXACIN INJ 0 ML IV ONE (12:37)
[2016-08-12] MEDS ORDERED: methylPREDNISolone SOD SUC 125 MG/2 ML VIAL ONE (12:38)
[2016-08-12] MEDS ORDERED: FUROSEMIDE 40 MG/4 ML VIAL ONE (12:38)
[2016-08-12 12:39] LABS: PT Patient Result 10.3 SECS; Partial Thromboplastin Time 22.8 SECS (0-40)
--- NOTE | 2016-08-12 12:43 | XRay Report ---
History: Shortness of breath Date: 08/12/2016 Study: Chest x-ray AP portable Comparison exam: Chest x-ray August 07, 2016 There is continued cardiomegaly. The mediastinal contours are unchanged. There is extensive chronic parenchymal scarring throughout both lungs. There are some cystic/emphysematous changes in the lung apices as before. There is no obvious new or worsening infiltrate. There is bilateral pleural scarring, left more so than right. The osseous structures are unchanged. Impression: No gross overall change from the previous study. Chronic lung disease with bullous changes in the lung apices as before. Continued cardiomegaly PROCEDURE INTERPRETED AT [facility] DEPARTMENT OF RADIOLOGY Final Report Signed by: Dr. Gladis Whitt
[2016-08-12 12:51] LABS: Alanine Aminotransferase 45 U/L (16-61); Albumin 3.3 G/DL (3.4-5.0); Alkaline Phosphatase 93 U/L (45-117); Aspartate Amino Transferase 28 U/L (0-37); Blood Urea Nitrogen 21 MG/DL (7-18); Calcium 8.5 MG/DL (8.5-10.1); Glucose 420 MG/DL (74-106); Osmolality,Calculated 303.1 MOS/KG (273-304); Potassium 5.1 MMOL/L (3.5-5.1); Sodium 142 MMOL/L (136-145); Total Protein 6.1 G/DL (6.4-8.3)
[2016-08-12 12:52] LABS: Troponin I Only 0.064 NG/ML (0.00-0.045)
[2016-08-12 12:53] LABS: Hypochromasia 1+; Lymphocytes 3 % (20-55); Platelet Estimate Adequate; Segmented Neutrophils 88 % (50-85); Total Cells Counted 100
--- NOTE | 2016-08-12 14:07 | Hospitalist History & Physical ---
Assessment and Plan (1) Edema of right lower extremity Status: Acute Assessment and plan: Venous Dopplers to rule out DVT, BNP elevated at 400 and echocardiogram Current Visit: Yes (2) Leukocytosis Status: Acute Assessment and plan: Leukocytosis most likely secondary to steroids. Will use Levaquin for now no infiltrate noted on chest x-ray Current Visit: Yes (3) Sarcoidosis Status: Chronic Assessment and plan: Continue duo nebs, steroids, antibiotics and will consider [facility] transfer in the morning. Current Visit: No (4) Hypertension Status: Chronic Assessment and plan: Hold blood pressure meds at this time Current Visit: No (5) Acute asthma exacerbation Status: Resolved Assessment and plan: Continue duo nebs and steroid Current Visit: No (6) Tachycardia Status: Acute Assessment and plan: Rule out DVT, will get echo BNP may be elevated due to pulmonary hypertension, placed on a Dilt drip Current Visit: Yes History of Present Illness Chief complaint: sob History of present illness: Mr. Stapleton is a 60 year old male pulmonary sarcoidosis diagnosed in 2007. He is cared for by Dr. Fragoso at [facility] – [place] now oxygen dependent presents with one-week of progressive dyspnea on exertion and at rest, almost continuous wheezing, and O2 saturations on room air that have dropped to low 80s after hanging around 90 % on home O2 for the last several months. He has been tachycardic with swelling in his right lower extremity. I am concerned about a DVT will do a stat ultrasound. He has not had a recent echocardiogram and we will do an echo. His BNP is elevated at 400. He does report now of having lower extremity swelling as well as a dry cough. He denies chills, fever, chest pain , diaphoresis, nausea, or vomiting at this time. He was seen on Tuesday for sharp chest pain that sounds muscle skeletal in nature but was discharged after being treated. They recommended that he get a stress test. I do not feel we need to pursue this at this time. Home Medications Medication Instructions Recorded Confirmed Type Albuterol Inhaler [Proventil 1 puff PO Q3-4H PRN 05/17/16 08/12/16 History Inhaler] Albuterol Neb [Proventil Neb] 1 packet PO Q3-4H PRN 05/17/16 08/12/16 History Fluticasone/Salmeterol 500-50 2 puff PO QAM 05/17/16 08/12/16 History [Advair 500-50] Triamterene/Hydrochlorothiazid 1 tablet PO QAM 05/17/16 08/12/16 History [Triamterene-Hctz 37.5-25 mg Tb] predniSONE TAB [PredniSONE] 20 mg PO DAILY #30 tablet 05/20/16 08/12/16 Rx Cefuroxime Tab [Ceftin] 500 mg PO BID PRN 08/07/16 08/12/16 History methylPREDNISolone 8 mg PO QAM PRN 08/07/16 08/12/16 History [Methylprednisolone] Allergies Allergy/AdvReac Type Severity Reaction Status Date / Time No Known Allergies Allergy Verified 08/12/16 11:54 Medical,Surgical,& Family Hx - Medical History Cardio: History of: Hypertension No history of: Cardiac Dysrhythmia, CAD, [place] Respiratory: History of: Asthma, Respiratory Problems (sarcoidosis) - Surgical History Abdominal Surgeries: Surgical HX of: Abdominal Surgery - Family History Family History: Reports;: Family Cancer, Family Diabetes, Family Hypertension - Social History Smoking Status: Never smoker Frequency of Alcohol Use: None Type of Drug Use: None Marital Status: Lives With:: Spouse Functional capacity: independent ambulation - Constitutional Constitutional: Present: fatigue. Absent: fever(s) - Cardiovascular Cardiovascular: Present: dyspnea, dyspnea on exertion, edema (Right leg). Absent: chest pain at rest, chest pain with activity - Respiratory Respiratory: Present: cough, dyspnea, dyspnea on exertion, wheezing, change in phlegm color - Gastrointestinal Gastrointestinal: Absent: abdominal pain, constipation, cramping, nausea, vomiting - Genitourinary Genitourinary: Absent: difficulty urinating, dysuria - Psychiatric Psychiatric: Present: anxiety, depression Exam - Constitutional Vitals: Period Temp Pulse Resp BP Sys/Rowland Pulse Ox Last 24 Hr 97.9 F-98 F 92-102 25-26 118-138/72-97 87 General appearance: normal weight, mild distress - Head Head exam: Present: normal inspection, normocephalic - Eye Eye exam: Present: EOMI. Absent: scleral icterus Pupils: Present: INGE, normal accommodation - ENT ENT exam: Present: normal exam, normal external ear exam - Neck Neck exam: Absent: lymphadenopathy, thyromegaly - Respiratory Respiratory exam: Present: decreased breath sounds, rhonchi, wheezes - Cardiovascular Cardiovascular exam: Present: tachycardia. Absent: systolic murmur - GI/Abdominal GI/Abdominal exam: Present: normal bowel sounds, soft. Absent: tenderness - Extremities Exam Extremities exam: Present: normal capillary refill, edema (Right leg) - Neurological Exam Neurological exam: Present: alert, oriented X3, CN II-XII intact, reflexes normal. Absent: motor sensory deficit - Psychiatric Psychiatric exam: Present: normal affect, normal mood - Skin Skin exam: Present: normal color, warm Results - Labs CBC & BMP: 08/12/16 12:08 08/12/16 12:08 Lab Results: I have reviewed the past 24 hour labs - Diagnostic Findings Procedure: Chest x-ray: report reviewed by me (Bolus emphysema with chronic lung changes no acute infiltrate noted)
--- NOTE | 2016-08-12 14:21 | Hospitalist History & Physical ---
Assessment and Plan (1) Edema of right lower extremity Status: Acute Assessment and plan: Venous Dopplers to rule out DVT, BNP elevated at 400 and echocardiogram Current Visit: Yes (2) Leukocytosis Status: Acute Assessment and plan: Leukocytosis most likely secondary to steroids. Will use Levaquin for now no infiltrate noted on chest x-ray Current Visit: Yes (3) Sarcoidosis Status: Chronic Assessment and plan: Continue duo nebs, steroids, antibiotics and will consider [facility] transfer in the morning. Current Visit: No (4) Hypertension Status: Chronic Assessment and plan: Hold blood pressure meds at this time Current Visit: No (5) Acute asthma exacerbation Status: Resolved Assessment and plan: Continue duo nebs and steroid Current Visit: No (6) Tachycardia Status: Acute Assessment and plan: Rule out DVT, will get echo BNP may be elevated due to pulmonary hypertension, placed on a Dilt drip Current Visit: Yes History of Present Illness History of present illness: Mr. Stapleton is a 60 year old male Home Medications Medication Instructions Recorded Confirmed Type Albuterol Inhaler [Proventil 1 puff PO Q3-4H PRN 05/17/16 08/12/16 History Inhaler] Albuterol Neb [Proventil Neb] 1 packet PO Q3-4H PRN 05/17/16 08/12/16 History Fluticasone/Salmeterol 500-50 2 puff PO QAM 05/17/16 08/12/16 History [Advair 500-50] Triamterene/Hydrochlorothiazid 1 tablet PO QAM 05/17/16 08/12/16 History [Triamterene-Hctz 37.5-25 mg Tb] predniSONE TAB [PredniSONE] 20 mg PO DAILY #30 tablet 05/20/16 08/12/16 Rx Cefuroxime Tab [Ceftin] 500 mg PO BID PRN 08/07/16 08/12/16 History methylPREDNISolone 8 mg PO QAM PRN 08/07/16 08/12/16 History [Methylprednisolone] Allergies Allergy/AdvReac Type Severity Reaction Status Date / Time No Known Allergies Allergy Verified 08/12/16 11:54 Medical,Surgical,& Family Hx - Medical History Cardio: History of: Hypertension No history of: Cardiac Dysrhythmia, CAD, [place] Respiratory: History of: Asthma, Respiratory Problems (sarcoidosis) - Surgical History Abdominal Surgeries: Surgical HX of: Abdominal Surgery - Family History Family History: Reports;: Family Cancer, Family Diabetes, Family Hypertension - Social History Smoking Status: Never smoker Frequency of Alcohol Use: None Type of Drug Use: None Exam - Constitutional Vitals: Period Temp Pulse Resp BP Sys/Rowland Pulse Ox Last 24 Hr 97.9 F-98 F 92-102 25-26 118-138/72-97 87 Results - Labs CBC & BMP: 08/12/16 12:08 08/12/16 12:08
[2016-08-12] MEDS ORDERED: DEXTROSE 50% 25 GM/50 ML VIAL IV PRN (15:58)
[2016-08-12] MEDS ORDERED: DILTIAZEM INJ 100 MG in SODIUM CHLORIDE 0.9% 100 ML IV SCH (15:58)
[2016-08-12] MEDS ORDERED: DOCUSATE SODIUM 100 MG CAPSULE PO PRN (15:58)
[2016-08-12] MEDS ORDERED: GLUCAGON 1 MG VIAL IM PRN (15:58)
[2016-08-12] MEDS ORDERED: BISACODYL 5 MG TABLET PO PRN (15:58)
[2016-08-12] MEDS ORDERED: ONDANSETRON 4 MG/2 ML VIAL IV PRN (15:58)
[2016-08-12] MEDS ORDERED: methylPREDNISolone SOD SUC 125 MG/2 ML VIAL IV SCH (16:00)
[2016-08-12] MEDS: ALBUTEROL/IPRATROPIUM 3 ML NEB RESP TX SCH ×2 (16:29→19:41)
[2016-08-12] MEDS: FLUTICASONE/SALMETEROL 500-50 DISKUS 14 DOSE INH SCH ×2 (16:32→21:15)
[2016-08-12 16:36] LABS: ABG Base Excess 0.7 MMOL/L (-2.5-2.5); ABG HCO3 24.9 MMOL/L (20-26); ABG Oxygen Saturation 93.7 % (95-100); ABG PCO2 51.7 MM HG (35-48); ABG PH 7.338 (7.35-7.45); ABG PO2 72.7 MM HG (80-95); ABG TCO2 23.5 MMOL/L (23-27); Allen Test Positive
[2016-08-12] MEDS: INSULIN GLARGINE 100 UNIT/ML SUBCUT SCH (16:43)
[2016-08-12] MEDS: FUROSEMIDE 20 MG/2 ML VIAL IV SCH (16:44)
[2016-08-12] MEDS: INSULIN LISPRO 100 UNIT/ML SUBCUT SCH ×2 (16:44→21:15)
[2016-08-12] MEDS: methylPREDNISolone SOD SUC 125 MG/2 ML VIAL IV SCH (17:01)
--- NOTE | 2016-08-12 19:45 | Ultrasound Report ---
Exam: Bilateral lower extremity venous Doppler ultrasound Comparison: 05/18/2016 Clinical history: Leg swelling Technique: Duplex scan of the lower extremity veins using B-mode/grayscale scaled imaging and Doppler spectral analysis and color flow. Findings: Major venous structures of the lower extremities demonstrate a normal course and caliber. Normal color-flow study and spectral analysis. There is normal compression and augmentation of bilateral common femoral, superficial femoral and popliteal veins. The proximal bilateral greater saphenous veins appear to be patent. Impression: No evidence to suggest deep venous thrombosis within either lower extremity. Ultrasound images were captured and stored. PROCEDURE INTERPRETED AT [facility] [place] DEPARTMENT OF RADIOLOGY Final Report Signed by: Dr. Laisha Boateng
[2016-08-12] MEDS: ENOXAPARIN 40 MG/0.4 ML SYRINGE SUBCUT SCH (21:15)
[2016-08-13] MEDS: ALBUTEROL/IPRATROPIUM 3 ML NEB RESP TX SCH ×7 (00:17→23:44)
[2016-08-13] MEDS: methylPREDNISolone SOD SUC 125 MG/2 ML VIAL IV SCH ×3 (00:37→11:50)
[2016-08-13 05:13] LABS: Basophils % 0.3 % (0.0-0.8); Hemoglobin 14.8 GM/DL (14.0-18.0); Immature Granulocytes % 5.6 %; Lymphocytes # 0.4 10*3/uL (1.4-4.0); Lymphocytes % 2.5 % (21.2-54.2); Mean Corpuscular HGB Conc 32.9 GM/DL (32-36); Mean Corpuscular Hemoglobin 31 PG (27-34); Mean Corpuscular Volume 92.6 FL (87-102); Monocytes # 0.2 10*3/uL (0.11-0.8); Monocytes % 1.5 % (1.7-12.7); Neutrophils # 12.9 10*3/uL (1.4-7.4); Neutrophils % 90.1 % (38.7-73.9); Platelet Count 174 T/CUMM (130-400); Red Blood Count 4.86 MC/CUMM (3.8-5.5); Red Cell Distribution Width 12.5 % (9.3-17.3); White Blood Count 14.3 T/CUMM (4-12)
[2016-08-13 05:38] LABS: Band Neutrophils 2 % (0-10); Lymphocytes 5 % (20-55); Metamyelocytes 2 %; Myelocytes 4 %; Platelet Estimate Normal; Segmented Neutrophils 86 % (50-85); Total Cells Counted 100
[2016-08-13 05:45] LABS: Albumin 3.2 G/DL (3.4-5.0); Bilirubin,Total 0.5 MG/DL (0.2-1.0); Calcium 8.5 MG/DL (8.5-10.1); Osmolality,Calculated 302.8 MOS/KG (273-304); Potassium 4.2 MMOL/L (3.5-5.1); Total Protein 5.4 G/DL (6.4-8.3)
--- NOTE | 2016-08-13 07:09 | Physician Query Form ---
CLICK EDIT DOCUMENT TO SELECT QUERY ANSWER --> OK --> SIGN Katherine Stephen RN, CCDS Certified Clinical Frame Table Operator Helper W) [phone] (f) [phone] [email or web address] PROVIDERS: Make your selection(s) from the choices in EACH section by typing an "x" and enter comments in the comment section. Please use your independent medical judgment in providing your response. This request does not imply that any particular answer is desired or expected. CLINICAL INDICATORS: (Providers should not edit this section) The medical record indicates that the patient was admitted with asthma exacerbation, history of Sarcoidosis, "now oxygen dependent presents with one- week of progressive dyspnea on exertion and at rest". The patient was admitted and placed on 2 liters per NC. Based on the above, could you clarify the appropriate diagnosis, if significant , that supports the above abnormalities and additional evaluation, monitoring, and/or treatment rendered: ( ) patient was not monitored or treated for chronic respiratory failure ( ) patient was monitored or treated for chronic respiratory failure (x ) Other, please specify: acute on chronic respiratory failure ( ) Clinically unable to determine COMMENTS: Use of terms such as suspected, likely, or probable (associated with a specific diagnosis that is being evaluated, monitored, or treated as if it exists) are acceptable and can be restated in the discharge summary if not ruled out. MTDD
[2016-08-13] MEDS: INSULIN LISPRO 100 UNIT/ML SUBCUT SCH ×4 (09:31→21:10)
[2016-08-13] MEDS: FUROSEMIDE 20 MG/2 ML VIAL IV SCH ×2 (09:31→17:42)
[2016-08-13] MEDS: INSULIN GLARGINE 100 UNIT/ML SUBCUT SCH (09:31)
[2016-08-13] MEDS: FLUTICASONE/SALMETEROL 500-50 DISKUS 14 DOSE INH SCH ×2 (09:34→21:12)
[2016-08-13] MEDS: PANTOPRAZOLE 40 MG TABLET PO SCH (09:34)
[2016-08-13] MEDS: LEVOFLOXACIN INJ 750 MG in PREMIX 1 EACH IV SCH (11:49)
[2016-08-13] MEDS ORDERED: INSULIN REGULAR 100 UNIT/ML IV ONE (13:27)
[2016-08-13] MEDS ORDERED: INSULIN GLARGINE 100 UNIT/ML SUBCUT ONE (13:30)
[2016-08-13] MEDS ORDERED: SODIUM CHLORIDE 0.45% 1,000 ML IV ONE (13:32)
[2016-08-13] MEDS: DILTIAZEM CD 120 MG CAPSULE PO SCH (13:51)
--- NOTE | 2016-08-13 15:36 | Hospitalist Progress Note ---
Assessment and Plan (1) Sarcoidosis Status: Chronic Assessment and plan: Decrease amount of steroids and continue DuoNeb Current Visit: No (2) Edema of right lower extremity Status: Acute Assessment and plan: No evidence of DVT Current Visit: Yes (3) Leukocytosis Status: Acute Assessment and plan: Most likely due to steroids per Current Visit: Yes (4) Hypertension Status: Chronic Assessment and plan: We will start low dose of diltiazem Current Visit: No (5) Acute asthma exacerbation Status: Resolved Assessment and plan: Continue duo nebs and steroids Current Visit: No (6) Tachycardia Status: Acute Assessment and plan: Continue diltiazem Current Visit: Yes (7) Volume overload Status: Acute Assessment and plan: lasix 20 mg IV every 12 hours, cont potassium, echo Current Visit: Yes Hospitalist: Subjective Interval history: Patient is feeling much better today with diuresis. Echo is still pending. No evidence of DVT. Patient's breathing has improved. And he is wheezing less. Patient had an elevated blood sugar in the emergency room and was getting diabetic education. I made him aware that he will probably have to be on insulin. Exam - Constitutional Vitals: Period Temp Pulse Resp BP Sys/Rowland Pulse Ox Last 24 Hr 96.6 F-98 F 80-110 16-24 120-135/61-91 90-99 Exam: Heart Rate-[RRR] Lungs-[CTAB] GI-[+bs soft, NT] Ext-[no edema] Neuro [Motor 5/5], [alert and oriented times 3] psych [normal mood and affect] General [no acute distress] Results - Labs CBC & BMP: 08/13/16 04:22 08/13/16 04:22 Lab Results: I have reviewed the past 24 hour labs - Diagnostic Findings Procedure: Ultrasound: report reviewed by me (No evidence of DVT)
[2016-08-13] MEDS: metFORMIN 500 MG TABLET PO SCH (17:42)
--- NOTE | 2016-08-13 20:46 | ECHO Report ---
Joshua Stapleton Exam Date: 08/13/2016 13:48 Referring Physician: Technologist: Gaurav GARCIA Age: 60 Ht (in): Wt (lb): Gender: M Exam Location: [facility] Echo Indications: tachycardia, leukocytosis, edema BP: / HR: Rhythm: Sinus Technical Quality: IMPRESSIONS Left ventricular ejection fraction is estimated at 55-60 %. Severely increased right heart size suggests severe chronic lung disease. Moderate tricuspid valve regurgitation. MEASUREMENTS (Male / Female) Normal Values 2D ECHO LV Diastolic Diameter PLAX 3.6 cm 4.2 - 5.9 / 3.9 - 5.3 cm LV Systolic Diameter PLAX 2.5 cm LV Fractional Shortening PLAX 31.2 % IVS Diastolic Thickness 1.7 cm 0.6 - 1.0 / 0.6 - 0.9 cm LVPW Diastolic Thickness 1.4 cm 0.6 - 1.0 / 0.6 - 0.9 cm RV Internal Dim ED PLAX 3.9 cm Aortic Root Diameter 2.4 cm LA Systolic Diameter LX 4.5 cm 3.0 - 4.0 / 2.7 - 3.8 cm DOPPLER TR Peak Velocity 289.0 cm/s TR Peak Gradient 33.4 mmHg FINDINGS Left Ventricle Normal left ventricular cavity size. Mild left ventricular hypertrophy. Left ventricular ejection fraction is estimated at 55-60 %. Right Ventricle Severely increased right ventricular size. Right Atrium Severely increased right atrial size. Left Atrium Normal left atrial size. Mitral Valve Structurally normal mitral valve. Aortic Valve Structurally normal aortic valve. Tricuspid Valve Morphologically normal tricuspid valve. Moderate tricuspid valve regurgitation. Tricuspid regurgitation velocities suggest a PAP of 33.4 mmHg + RAP. Pulmonic Valve Morphologically normal pulmonic valve. Pericardium No pericardial effusion. Aorta Normal size aortic root and proximal ascending aorta. George Cuevas (Electronically Signed) Final Date: 13 August 2016 20:45
[2016-08-13] MEDS ORDERED: INSULIN GLARGINE 100 UNIT/ML SUBCUT SCH (21:00)
[2016-08-13] MEDS: ENOXAPARIN 40 MG/0.4 ML SYRINGE SUBCUT SCH (21:12)
[2016-08-13] MEDS: methylPREDNISolone SOD SUC 40 MG/1 ML VIAL IV SCH (21:12)
[2016-08-14] MEDS: ALBUTEROL/IPRATROPIUM 3 ML NEB RESP TX SCH ×6 (03:14→23:28)
[2016-08-14] MEDS: methylPREDNISolone SOD SUC 40 MG/1 ML VIAL IV SCH (03:47)
[2016-08-14] MEDS: PANTOPRAZOLE 40 MG TABLET PO SCH (08:44)
[2016-08-14] MEDS: INSULIN LISPRO 100 UNIT/ML SUBCUT SCH ×4 (08:44→20:18)
[2016-08-14] MEDS: POTASSIUM CHLORIDE 20 MEQ TABLET PO SCH (08:44)
[2016-08-14] MEDS: metFORMIN 500 MG TABLET PO SCH ×2 (08:44→16:58)
[2016-08-14] MEDS: INSULIN GLARGINE 100 UNIT/ML SUBCUT SCH (08:45)
[2016-08-14] MEDS: FUROSEMIDE 20 MG/2 ML VIAL IV SCH (08:47)
[2016-08-14] MEDS: DILTIAZEM CD 120 MG CAPSULE PO SCH (08:48)
[2016-08-14] MEDS: FLUTICASONE/SALMETEROL 500-50 DISKUS 14 DOSE INH SCH ×2 (08:48→20:17)
--- NOTE | 2016-08-14 09:51 | Hospitalist Progress Note ---
Assessment and Plan (1) Sarcoidosis Status: Chronic Assessment and plan: continue to wean off steroids and continue DuZina, Dr Wesley Ta, Sarcoid specialist Current Visit: No (2) Edema of right lower extremity Status: Acute Assessment and plan: No evidence of DVT Current Visit: Yes (3) Leukocytosis Status: Acute Assessment and plan: Most likely due to steroids Current Visit: Yes (4) Hypertension Status: Chronic Assessment and plan: cont diltiazem Current Visit: No (5) Acute asthma exacerbation Status: Resolved Assessment and plan: will add singulair Current Visit: No (6) Tachycardia Status: Acute Assessment and plan: Continue diltiazem Current Visit: Yes (7) Volume overload Status: Acute Assessment and plan: no evidence of left heart failure but developing right heart failure Current Visit: Yes (8) IDDM (insulin dependent diabetes mellitus) Status: Acute Assessment and plan: increase 1000 mg po bid, cont lantus 20 units every day Current Visit: Yes Hospitalist: Subjective Interval history: Bs still running high, Wheezing present but better, also asked for celias. Will call uab for recommendation on sarcoid drAshish Exam - Constitutional Vitals: Period Temp Pulse Resp BP Sys/Rowland Pulse Ox Last 24 Hr 97.6 F-98.4 F 87-108 18-22 129-141/69-87 92-100 Exam: Heart Rate-[RRR] Lungs-[few wheezes ] GI-[+bs soft, NT] Ext-[no edema] Neuro [Motor 5/5], [alert and oriented times 3] psych [normal mood and affect] General [no acute distress] Results - Labs CBC & BMP: 08/13/16 04:22 08/13/16 04:22 Lab Results: I have reviewed the past 24 hour labs - Diagnostic Findings Procedure: Ultrasound: report reviewed by me (EF 55%, severely increased right ventricle and right atrium with PA P of 33)
[2016-08-14] MEDS: MONTELUKAST 10 MG TABLET PO SCH (11:51)
[2016-08-14] MEDS: LEVOFLOXACIN INJ 750 MG in PREMIX 1 EACH IV SCH (11:52)
[2016-08-14] MEDS: ENOXAPARIN 40 MG/0.4 ML SYRINGE SUBCUT SCH (20:18)
[2016-08-15] MEDS: ALBUTEROL/IPRATROPIUM 3 ML NEB RESP TX SCH ×3 (03:38→11:17)
[2016-08-15] MEDS: INSULIN GLARGINE 100 UNIT/ML SUBCUT SCH (08:11)
[2016-08-15] MEDS: INSULIN LISPRO 100 UNIT/ML SUBCUT SCH ×2 (08:12→12:03)
[2016-08-15] MEDS: FLUTICASONE/SALMETEROL 500-50 DISKUS 14 DOSE INH SCH (08:13)
[2016-08-15] MEDS: DILTIAZEM CD 120 MG CAPSULE PO SCH (08:14)
[2016-08-15] MEDS: MONTELUKAST 10 MG TABLET PO SCH (08:15)
[2016-08-15] MEDS: POTASSIUM CHLORIDE 20 MEQ TABLET PO SCH (08:15)
[2016-08-15] MEDS: PANTOPRAZOLE 40 MG TABLET PO SCH (08:15)
[2016-08-15] MEDS: metFORMIN 500 MG TABLET PO SCH (08:17)
[2016-08-15] MEDS ORDERED: predniSONE 20 MG TABLET PO SCH (09:00)
--- NOTE | 2016-08-15 11:19 | Discharge Summary ---
Hospital Course - Hospital Course Hospital Course: Mr. Stapleton is a 60 year old male pulmonary sarcoidosis diagnosed in 2007. He is cared for by Dr. Fragoso at [facility] now oxygen dependent presents with one-week of progressive dyspnea on exertion and at rest, almost continuous wheezing, and O2 saturations on room air that have dropped to low 80s. Venous Doppler shows no evidence of DVT. Echocardiogram showed a normal EF of 55% with evidence of right-sided heart failure due to dilation of the atrium and the ventricle with a PAP of 33. Patient's BNP on admission was over 400. He was gently diuresed with 2 doses of Lasix. He will have to continue on the low dose of Lasix but I do not want to dehydrate him as he is dependent on his right-sided filling pressure for better cardiac output. His hemoglobin A1c was 9.8. He was not even where he was diabetic. His blood sugars were difficult to control. We have him on thousand twice a day metformin and on Lantus. He did receive diabetic education. For his sarcoidosis I would like him to see Dr. Wesley Ta at [facility]. I have spoke with the bid manager millstone cleaner at [facility] and they will call me on Tuesday with an appointment. His blood pressures been a little bit high and he has been tachycardic. He is unable to tolerate any kind of beta blockers at this time but is well controlled on diltiazem CD once a day. He will follow up with his PRODUCT SAFETY SPECIALIST in 1-2 weeks. May need oxygen at all times. [facility] should call me with appointment on Tuesday. - Time spent with patient Time with patient DS: Greater than 30 minutes (45 min) Diagnosis - Discharge Diagnosis (1) Sarcoidosis Status: Chronic (2) Edema of right lower extremity Status: Acute (3) Leukocytosis Status: Acute (4) Hypertension Status: Chronic (5) Acute asthma exacerbation Status: Resolved (6) Tachycardia Status: Acute (7) Volume overload Status: Acute (8) IDDM (insulin dependent diabetes mellitus) Status: Acute Discharge Plan - Discharge Data Disposition: Disch To Home/Self Care Condition at Discharge: Stable Discharge Diet: diabetic diet Activity: wear oxygen at all times Hygiene: no restrictions Weight Bearing at Discharge: full weight bearing Driving: no restrictions - Discharge Medications New Diltiazem Cd Cap [Cardizem CD] 120 mg PO DAILY #30 capsule Furosemide Tab [Lasix Tab] 20 mg PO DAILY #30 tablet Insulin Glargine [Lantus] 20 unit SUBCUT DAILY #100 ml Potassium Chloride Cap/Tab [K Dur] 10 meq PO DAILY #30 tablet metFORMIN [Glucophage] 1,000 mg PO BID W/MEALS #60 tablet Montelukast Tab [Singulair Tab] 10 mg PO DAILY #30 tablet Levofloxacin Tab [Levaquin Tab] 750 mg PO DAILY #3 tablet Continue Albuterol Inhaler [Proventil Inhaler] 1 puff PO Q3-4H PRN PRN Reason: Shortness Of Breath/Wheezing Fluticasone/Salmeterol 500-50 [Advair 500-50] 2 puff PO QAM Changed Albuterol Neb [Proventil Neb] 1 packet PO TID #90 vial predniSONE TAB [PredniSONE] 40 mg PO DAILY #30 tablet Discontinued Cefuroxime Tab [Ceftin] 500 mg PO BID PRN PRN Reason: ASTHMA Triamterene/Hydrochlorothiazid [Triamterene-Hctz 37.5-25 mg Tb] 1 tablet PO QAM methylPREDNISolone [Methylprednisolone] 8 mg PO QAM PRN PRN Reason: sob - Follow Up or Referral Follow Up: Pulmonary clinic at [facility], [Other] - 1 Week (they are suppose to call me with an appointment for him. Dr. Wesley Ta will be the specialist in Sarcoid. ) PMD, PRODUCT SAFETY SPECIALIST [Other] - 2 Weeks - Forms/Instructions Additional Discharge Instructions: Okay to return to work on Tuesday Exam - Constitutional Vitals: Period Temp Pulse Resp BP Sys/Rowland Pulse Ox Last 24 Hr 97.2 F-98.3 F 68-92 18-25 116-129/64-80 90-99 General appearance: normal weight, no acute distress - Respiratory Respiratory exam: Present: clear to auscultation bilaterally. Absent: wheezes - Cardiovascular Cardiovascular exam: Present: regular rate and rhythm. Absent: systolic murmur - GI/Abdominal GI/Abdominal exam: Present: normal bowel sounds, soft. Absent: tenderness - Extremities Exam Extremities exam: Present: normal inspection, normal capillary refill. Absent: edema - Neurological Exam Neurological exam: Present: alert, oriented X3 Discharge Results Labs on day of discharge: Labs from last 24 hours 08/15/16 08/14/16 08/14/16 07:07 19:58 15:50 POC Glucose 216 H 247 H 331 H 08/14/16 08/14/16 14:29 11:18 POC Glucose 330 H 408 H DS: Provider Date of admission: 08/12/16 15:58 Primary care physician: . No PCP Attending physician on admission: Mary Treviño MD Consults: 08/12/16 16:06 Consult to Pharmacy [CONS] Routine Reason for Pharmacy Consult: Adjust Meds Renal Funct Discharging clinician: Mary Treviño MD
[2016-08-15] MEDS ORDERED: FUROSEMIDE 20 MG TABLET PO ONE ×2 (11:25→11:28)
[2016-08-15] MEDS: LEVOFLOXACIN INJ 750 MG in PREMIX 1 EACH IV SCH (12:06)
[2016-08-15 12:28] VITALS: BP 128/67
--- NOTE | 2016-08-19 11:16 | Physician Query Form ---
CLICK EDIT DOCUMENT TO SELECT QUERY ANSWER --> OK --> SIGN Soraya Garcia RN, CCDS Certified Clinical Publication Designer W) [phone] (f) [phone] [email or web address]: Make your selection(s) from the choices in EACH section by typing an "x" and enter comments in the comment section. Please use your independent medical judgment in providing your response. This request does not imply that any particular answer is desired or expected. CLINICAL INDICATORS: (Providers should not edit this section) Patient admitted with chronic pulmonary sarcoidosis diagnosed in 2007, treated with supplemental O2 (now oxygen dependent), "progressive dyspnea and progressive dyspnea on exertion and at rest, almost continuous wheezing", treated with O2, nebs, antibiotics and solumedrol. Referred to Dr. Wesley Ta at [facility]. (x ) Patient treated for acute exacerbation of sarcoidosis ( ) Patient treated for chronic, stable sarcoidosis only ( ) Other, please specify: ( ) Clinically unable to determine COMMENTS: Use of terms such as suspected, likely, or probable (associated with a specific diagnosis that is being evaluated, monitored, or treated as if it exists) are acceptable and can be restated in the discharge summary if not ruled out. MTDD
--- NOTE | 2016-08-19 11:22 | Physician Query Form ---
CLICK EDIT DOCUMENT TO SELECT QUERY ANSWER --> OK --> SIGN Soraya Garcia RN, CCDS Certified Clinical Demand Inspector W) [phone] (f) [phone] [email or web address]: Make your selection(s) from the choices in EACH section by typing an "x" and enter comments in the comment section. Please use your independent medical judgment in providing your response. This request does not imply that any particular answer is desired or expected. CLINICAL INDICATORS: (Providers should not edit this section) Patient with "Echocardiogram showed a normal EF of 55% with evidence of right- sided heart failure due to dilation of the atrium and the ventricle with a PAP of 33. Patient's BNP on admission was over 400. He was gently diuresed with 2 doses of Lasix.", "volume overload" documented with "no evidence of left heart failure" Please provide further specificity regarding CHF. ACUITY: ( ) Acute ( ) Chronic ( ) Acute on Chronic ( ) Clinicallly unable to determine TYPE: ( ) Systolic ( ) Diastolic ( ) Combined Systolic/Diastolic ( ) Other, please specify: ( ) Clinically unable to determine ( x) The patient does NOT have CHF COMMENTS: Use of terms such as suspected, likely, or probable (associated with a specific diagnosis that is being evaluated, monitored, or treated as if it exists) are acceptable and can be restated in the discharge summary if not ruled out. MTDD
== END 2016-08-15 13:07 | disposition home or self-care (01) | DRG 196 ==
LOC: N.ED 11:33 → N.EDINP 13:38 → N.TELEN 15:09
PROVIDERS: ADMIT Internal Medicine; ATTEND Internal Medicine

== ENCOUNTER 2016-09-06 18:25 | Inpatient (IN) ==
[2016-09-06] MEDS ORDERED: methylPREDNISolone SOD SUC 125 MG/2 ML VIAL IV STA (18:44)
[2016-09-06] MEDS ORDERED: cefTRIAXone 1,000 MG in SODIUM CHLORIDE 0.9% 100 ML IV STA (18:44)
[2016-09-06] MEDS ORDERED: FUROSEMIDE 100 MG/10 ML VIAL IV STA (18:44)
--- NOTE | 2016-09-06 18:49 | Emergency Department Note ---
Arrival - Arrival Chief Complaint: Shortness of Breath Stated Complaint: lack of air, hard to breathe ED Nursing Triage Note: PT C/O SHORTNESS OF BREATH SINCE TUESDAY- STATES HIS O2 SAT IS 75% AT HOME. PT IS ON CONTINUOUS O2. DENIES PAIN. Mode of Arrival: Wheelchair Limitations: No Limitations Source: Patient Time Seen by Provider: 09/06/16 18:44 - History of Present Illness HPI Narrative: This 61-year-old black male with long-standing sarcoidosis oxygen dependent presents with 4 days of progressive increase in dyspnea on exertion, desaturation to 75%, and continuous wheeze. He denies chills, fever, purulent sputum, chest pain, or sinus complaints. He does complain of increase in pedal edema in these last several days however. Currently he presents breathless and in mild respiratory distress. Onset (ago): day(s) Consistency: constant Severity: severe (Patient presents 4 days post onset of worsening symptoms) Allergies/Adverse Reactions: Allergies Allergy/AdvReac Type Severity Reaction Status Date / Time No Known Allergies Allergy Verified 09/06/16 18:33 Home Medications: Home Medications Medication Instructions Recorded Confirmed Type Albuterol Inhaler [Proventil 1 puff PO Q3-4H PRN 05/17/16 08/12/16 History Inhaler] Fluticasone/Salmeterol 500-50 2 puff PO QAM 05/17/16 08/12/16 History [Advair 500-50] Albuterol Neb [Proventil Neb] 1 packet PO TID #90 vial 08/15/16 08/12/16 Rx Diltiazem Cd Cap [Cardizem CD] 120 mg PO DAILY #30 capsule 08/15/16 Rx Furosemide Tab [Lasix Tab] 20 mg PO DAILY #30 tablet 08/15/16 Rx Insulin Glargine [Lantus] 20 unit SUBCUT DAILY #100 ml 08/15/16 Rx Levofloxacin Tab [Levaquin Tab] 750 mg PO DAILY #3 tablet 08/15/16 Rx Montelukast Tab [Singulair Tab] 10 mg PO DAILY #30 tablet 08/15/16 Rx Potassium Chloride Cap/Tab [K Dur] 10 meq PO DAILY #30 tablet 08/15/16 Rx Tadalafil [Cialis] 10 mg PO DAILY #10 tablet 08/15/16 Rx metFORMIN [Glucophage] 1,000 mg PO BID W/MEALS #60 tablet 08/15/16 Rx predniSONE TAB [PredniSONE] 40 mg PO DAILY #30 tablet 08/15/16 Rx Review of System - Review of System 12 point system: reviewed and no additional remarkable complaints except as stated - Review of System Constitutional: Present: as per HPI Head/Ears/Nose/Throat: Present: see HPI Respiratory: Present: as per HPI Cardiovascular: Present: as per HPI Medical,Surgical,& Family Hx - Medical History Cardio: History of: Hypertension No history of: Cardiac Dysrhythmia, CAD, [place] Endocrine: History of: Diabetes Mellitus (IDDM) Respiratory: History of: Asthma, Pneumonia, Respiratory Problems (sarcoidosis) Gastrointestinal: History of: GI Problems (hernia) - Surgical History Abdominal Surgeries: Surgical HX of: Abdominal Surgery, Colonoscopy - Family History Family History: Reports;: Family Cancer, Family Diabetes, Family Hypertension - Social History Smoking Status: Never smoker Frequency of Alcohol Use: None Type of Drug Use: None Exam Physical Examination: GENERAL: Well developed, well nourished black male in mild respiratory distress HEENT: Normocephalic. No trauma. Moist mucous membranes. EOMI. PERRLA. ENT NML NECK: Supple. No adenopathy. JVD to the angle of the jaw at 45 CARDIAC: Regular. No murmurs. Heart rate 106 CHEST: Bilateral expiratory wheezes. No respiratory distress. O2 sat 89% ABDOMEN: Soft. Nontender. Active bowel sounds. EXTREMITIES: No trauma. Normal ROM. 2+ pedal edema. SKIN: No diaphoresis. No rash. NEURO: Alert. Neuro intact. No focal deficits. Vital Signs: Vital Signs Temperature 97.8 F 09/06/16 18:45 Pulse Rate 105 H 09/06/16 19:41 Respiratory Rate 20 09/06/16 19:41 Blood Pressure 131/95 09/06/16 18:45 O2 Sat by Pulse Oximetry 93 L 09/06/16 19:41 Course - Reevaluation(s) Reevaluation #1: Discussed with patient need for hospitalization for further tuneup and diuresis. - Consultations Consultation #1: Discussed with the hospitalist service who will admit for further evaluation treatment Results - Labs CBC & BMP: 09/06/16 19:06 09/06/16 19:06 Labs: I reviewed the patient's laboratory and noted the elevated BNP as well as elevated troponin. - Impressions EKG: Sinus rhythm at 99 with normal [place] interval and QRS duration. Right axis deviation with nonspecific ST changes. No acute injury pattern noted. - Diagnostic Findings Procedure: Chest x-ray: image reviewed by me, report reviewed by me (No interval change but end-stage severe diffuse sarcoid related interstitial fibrosis.) Disposition Clinical Impression: Cor pulmonale, Congestive failure, Asthma, Sarcoidosis Case discussed with: patient, patient's family Disposition: Still a Patient Condition: Guarded Time of Disposition: 20:31
[2016-09-06] MEDS ORDERED: ALBUTEROL 2.5 MG/3 ML NEB RESP TX SCH (19:00)
--- NOTE | 2016-09-06 19:12 | XRay Report ---
XR chest 2V Indication: Shortness of breath. Chest 2 views: Comparison 08/12/2016. Heart remains minimally enlarged. Severe diffuse interstitial lung disease with endstage confluent fibrotic scarring throughout both lungs is again demonstrated, with no new infiltrates identified. Lung volumes remain low. No pneumothoraces are seen. Impression: No significant change from 08/12/2016 with severe diffuse end-stage interstitial lung disease as described. PROCEDURE INTERPRETED AT [facility] DEPARTMENT OF RADIOLOGY Final Report Signed by: Jules Cade M.D.
[2016-09-06 19:29] LABS: Basophils # 0.1 10*3/uL (0.0-0.2); Basophils % 0.6 % (0.0-0.8); Eosinophils % 0.3 % (0.00-10.9); Hematocrit 45.4 VOL% (42.0-52.0); Hemoglobin 14.3 GM/DL (14.0-18.0); Immature Granulocytes % 4.5 %; Immature Granulocytes Absolute 0.35 #; Lymphocytes # 0.5 10*3/uL (1.4-4.0); Lymphocytes % 6.4 % (21.2-54.2); Mean Corpuscular HGB Conc 31.5 GM/DL (32-36); Mean Corpuscular Hemoglobin 30 PG (27-34); Mean Corpuscular Volume 96.4 FL (87-102); Mean Platelet Volume 11.4 FL (9.6-12.0); Monocytes # 0.4 10*3/uL (0.11-0.8); Monocytes % 4.6 % (1.7-12.7); Neutrophils # 6.6 10*3/uL (1.4-7.4); Neutrophils % 83.6 % (38.7-73.9); Platelet Count 159 T/CUMM (130-400); Red Blood Count 4.71 MC/CUMM (3.8-5.5); White Blood Count 7.9 T/CUMM (4-12)
[2016-09-06] MEDS ORDERED: FUROSEMIDE 40 MG/4 ML VIAL ONE (19:33)
[2016-09-06] MEDS ORDERED: cefTRIAXone 1,000 MG VIAL ONE (19:33)
[2016-09-06] MEDS ORDERED: methylPREDNISolone SOD SUC 125 MG/2 ML VIAL ONE ×2 (19:33→20:58)
--- NOTE | 2016-09-06 19:40 | EKG Report ---
Stationary ECG Study [facility] ER Test Date: 09/06/2016 7:38:58 PM Pat Name: GUY JOAQUIN Department: Room: Gender: M Seat Mender: YOGESH : 1955 Requested by: Salomón Ann Order Number: [id number] Reading MD: SOLANGE LANE Intervals [place] Rate: 99 P: 73 AK: 135 QRS: 98 QRSD: 105 T: -25 QT: 359 QTc: 415 Interpretive Statements SINUS RHYTHM WITH SINUS ARRHYTHMIA BORDERLINE RIGHT AXIS DEVIATION ABNORMALITY Electronically Signed On 09-07-16 11:34:[address] [email or web address]
[2016-09-06 19:53] LABS: Alanine Aminotransferase 45 U/L (16-61); Albumin 3.4 G/DL (3.4-5.0); Alkaline Phosphatase 52 U/L (45-117); Aspartate Amino Transferase 22 U/L (0-37); Blood Urea Nitrogen 24 MG/DL (7-18); Calcium 7.7 MG/DL (8.5-10.1); Glucose 204 MG/DL (74-106); Osmolality,Calculated 295.8 MOS/KG (273-304); Potassium 4.7 MMOL/L (3.5-5.1); Sodium 144 MMOL/L (136-145); Total Protein 5.5 G/DL (6.4-8.3)
[2016-09-06 19:56] LABS: Troponin I Only 0.067 NG/ML (0.00-0.045)
[2016-09-06 19:58] LABS: D-Dimer <= 0.5 MG/L FEU; INR 1.2; PT Patient Result 12.4 SECS; Partial Thromboplastin Time 25.7 SECS (0-40)
[2016-09-06] MEDS ORDERED: ONDANSETRON 4 MG/2 ML VIAL IV PRN (20:26)
[2016-09-06] MEDS ORDERED: ZALEPLON 5 MG CAPSULE PO PRN (20:26)
[2016-09-06] MEDS ORDERED: ALBUTEROL 2.5 MG/3 ML NEB RESP TX PRN (20:26)
[2016-09-06 20:50] LABS: Apearance,Urine CLEAR (Clear); Glucose,Urine (UA) 50 mg/dL (Negative); Ketones,Urine Negative (Negative); Nitrite,Urine Negative (Negative); Protein,Urine 100 MG/DL; Urine Color Yellow (Yellow); Urine Specific Gravity 1.009 (1.001-1.035)
[2016-09-06 20:51] LABS: Bacteria,Urine Occasional /HPF (Few); Bilirubin,Urine Negative (Negative); Blood, Urine Negative (Negative); Granular Casts,Urine 6 /LPF (0-1); Hyaline Casts,Urine 4 /LPF (0-3); Urine Urobilinogen < 2.0 EU/DL (0.2-1.0); WBC,Urine <1 /HPF (0-6)
[2016-09-06 20:52] LABS: Barbiturates Screen,Urine Negative (Negative); Benzodiazepines Screen,Urine Negative (Negative); Cannabinoid Screen,Urine Negative (Negative); Opiate Screen,Urine Negative (Negative); Phencyclidine Screen,Urine Negative (Negative)
--- NOTE | 2016-09-06 20:56 | Hospitalist History & Physical ---
Assessment and Plan (1) Sarcoidosis Status: Chronic Current Visit: No (2) Hypertension Status: Chronic Current Visit: No (3) Acute asthma exacerbation Status: Resolved Current Visit: No (4) SOB (shortness of breath) Status: Acute Current Visit: No (5) Edema of right lower extremity Status: Acute Current Visit: No (6) IDDM (insulin dependent diabetes mellitus) Status: Acute Assessment and plan: We will admit the patient our service. We will will continue with gentle diuresis. Consult Dr. Rincon. Continue with schedule breathing treatments and steroids. Accu-Cheks before meals and at bedtime. Home meds appropriate with additional sliding scale as needed Current Visit: No History of Present Illness Chief complaint: Shortness of breath History of present illness: Mr. Stapleton is a 61 year old male significant past medical history of sarcoidosis presents with shortness of breath. Patient reports that his O2 saturation is been 75% all day. He did 1 breathing treatment today. He has been feeling short of breath really for the past 4 days. He was diagnosed with some right heart failure last month. He has been noting increased lower extremity swelling. He sees Dr. Rincon for sarcoidosis and was scheduled for stress test next week. He was complaining Dr. Cuevas both lower extremity swelling in the stopped 1 of his heart medications. Home Medications Medication Instructions Recorded Confirmed Type Albuterol Inhaler [Proventil 1 puff PO Q3-4H PRN 05/17/16 08/12/16 History Inhaler] Fluticasone/Salmeterol 500-50 2 puff PO QAM 05/17/16 08/12/16 History [Advair 500-50] Albuterol Neb [Proventil Neb] 1 packet PO TID #90 vial 08/15/16 08/12/16 Rx Diltiazem Cd Cap [Cardizem CD] 120 mg PO DAILY #30 capsule 08/15/16 Rx Furosemide Tab [Lasix Tab] 20 mg PO DAILY #30 tablet 08/15/16 Rx Insulin Glargine [Lantus] 20 unit SUBCUT DAILY #100 ml 08/15/16 Rx Levofloxacin Tab [Levaquin Tab] 750 mg PO DAILY #3 tablet 08/15/16 Rx Montelukast Tab [Singulair Tab] 10 mg PO DAILY #30 tablet 08/15/16 Rx Potassium Chloride Cap/Tab [K Dur] 10 meq PO DAILY #30 tablet 08/15/16 Rx Tadalafil [Cialis] 10 mg PO DAILY #10 tablet 08/15/16 Rx metFORMIN [Glucophage] 1,000 mg PO BID W/MEALS #60 tablet 08/15/16 Rx predniSONE TAB [PredniSONE] 40 mg PO DAILY #30 tablet 08/15/16 Rx Allergies Allergy/AdvReac Type Severity Reaction Status Date / Time No Known Allergies Allergy Verified 09/06/16 18:33 Medical,Surgical,& Family Hx - Medical History Cardio: History of: Hypertension No history of: Cardiac Dysrhythmia, CAD, [place] Endocrine: History of: Diabetes Mellitus (IDDM) Respiratory: History of: Asthma, Pneumonia, Respiratory Problems (sarcoidosis) Gastrointestinal: History of: GI Problems (hernia) - Surgical History Abdominal Surgeries: Surgical HX of: Abdominal Surgery, Colonoscopy - Family History Family History: Reports;: Family Cancer, Family Diabetes, Family Hypertension - Social History Smoking Status: Never smoker Frequency of Alcohol Use: None Type of Drug Use: None 12 point system: reviewed and no additional remarkable complaints except as stated Exam - Constitutional Vitals: Period Temp Pulse Resp BP Sys/Rowland Pulse Ox Last 24 Hr 97.8 F-97.8 F 105-106 20-36 131-131/95-95 89-93 General appearance: over weight - Head Head exam: Present: normal inspection - Eye Eye exam: Present: EOMI Pupils: Present: INGE - ENT ENT exam: Present: normal exam - Neck Neck exam: Present: normal inspection - Respiratory Respiratory exam: Present: prolonged expiratory phase, rhonchi, wheezes - Cardiovascular Cardiovascular exam: Present: regular rate and rhythm - GI/Abdominal GI/Abdominal exam: Present: normal bowel sounds - Extremities Exam Extremities exam: Present: edema Results - Labs CBC & BMP: 09/06/16 19:06 09/06/16 19:06
[2016-09-06] MEDS ORDERED: FLUTICASONE/SALMETEROL 250-50 DISKUS 14 DOSE INH SCH (21:00)
[2016-09-06] MEDS ORDERED: GLUCAGON 1 MG VIAL IM PRN (21:01)
[2016-09-06] MEDS ORDERED: DEXTROSE 50% 25 GM/50 ML VIAL IV PRN (21:01)
[2016-09-06] MEDS: ENOXAPARIN 40 MG/0.4 ML SYRINGE SUBCUT SCH (22:09)
[2016-09-06] MEDS: MONTELUKAST 10 MG TABLET PO SCH (22:09)
[2016-09-06] MEDS: FLUTICASONE/SALMETEROL 500-50 DISKUS 14 DOSE INH SCH (22:09)
[2016-09-07] MEDS: ALBUTEROL/IPRATROPIUM 3 ML NEB RESP TX SCH ×4 (01:06→20:36)
[2016-09-07] MEDS: methylPREDNISolone SOD SUC 40 MG/1 ML VIAL IV SCH ×4 (02:12→20:00)
[2016-09-07 05:42] LABS: Basophils % 0.4 % (0.0-0.8); Hematocrit 43.9 VOL% (42.0-52.0); Hemoglobin 13.9 GM/DL (14.0-18.0); Immature Granulocytes % 3.6 %; Immature Granulocytes Absolute 0.29 #; Lymphocytes # 0.2 10*3/uL (1.4-4.0); Lymphocytes % 2.9 % (21.2-54.2); Mean Corpuscular HGB Conc 31.7 GM/DL (32-36); Mean Corpuscular Hemoglobin 30 PG (27-34); Mean Corpuscular Volume 95.6 FL (87-102); Mean Platelet Volume 11.8 FL (9.6-12.0); Monocytes # 0.1 10*3/uL (0.11-0.8); Monocytes % 0.8 % (1.7-12.7); Neutrophils # 7.4 10*3/uL (1.4-7.4); Neutrophils % 92.3 % (38.7-73.9); Platelet Count 147 T/CUMM (130-400); Red Blood Count 4.59 MC/CUMM (3.8-5.5); Red Cell Distribution Width 12.8 % (9.3-17.3)
[2016-09-07 06:14] LABS: Calcium 7.8 MG/DL (8.5-10.1); Potassium 4.5 MMOL/L (3.5-5.1)
[2016-09-07 06:19] LABS: Band Neutrophils 4 % (0-10); Lymphocytes 2 % (20-55); Segmented Neutrophils 93 % (50-85); Total Cells Counted 100
[2016-09-07 06:20] LABS: Hypochromasia 1+; Platelet Estimate Adequate
[2016-09-07 07:00] LABS: Troponin I Only 0.043 NG/ML (0.00-0.045)
[2016-09-07] MEDS: PANTOPRAZOLE 40 MG TABLET PO SCH (09:37)
[2016-09-07] MEDS: FUROSEMIDE 40 MG/4 ML VIAL IV SCH ×2 (09:38→17:33)
[2016-09-07] MEDS: INSULIN REGULAR 100 UNIT/ML SUBCUT SCH ×4 (09:39→20:00)
[2016-09-07] MEDS: FLUTICASONE/SALMETEROL 500-50 DISKUS 14 DOSE INH SCH ×2 (09:46→20:01)
--- NOTE | 2016-09-07 11:24 | Pulmonology Consult Note ---
History of Present Illness Chief complaint: Congestive heart failure. Edema. Dyspnea on exertion. History of present illness: Mr. Stapleton is a 61 year old black male [place] [facility] [place] I been asked to see him in pulmonary consultation for evaluation and treatment. I have seen this patient in my office several times the last being in 07/19/2016. On August 12- he had a hospitalization here at [facility] on the care of the hospitalist. The patient complains of shortness of breath and dyspnea on exertion and he associates this with bilateral lower extremity edema which is greater on the right as compared to the left. He has been very active going to work and doing some traveling recently. He says he has been very careful about his salt. He has had a monitor with Dr. Cuevas who is his guide cruise. Do not know the result of this. Patient has a very mild cough he said no sputum production he denies hemoptysis. He does complain of orthopnea and PND. I do not get a history of cardiac angina. There is been no solid dysphasia and no reflux. The remainder the review of systems is negative. Allergies. None Home medicines. See below. As far as steroids are concerned the patient does well with Solu-Medrol and methylprednisolone but plain prednisone does not seem to work well for him Hospital medicines. See below Pneumovax was given 03/14/2013 Past history. Asthma. Biopsy-proven sarcoidosis. Appendectomy at age 4 with surgical complications. Center's hospitalization April 2016 with acute right lower lung and probably early left lower lung pneumonia which was in outpatient treatment failure Social history. Patient has never used tobacco. He is a high school graduate. Does not use alcohol. Family history. Positive for cancer diabetes and high blood pressure Chest x-ray. My interpretation. Cardiomegaly. Bilateral hilar adenopathy and right paratracheal lymph node. Pulmonary arteries cannot be seen well mediastinum slightly widened. There is interstitial scarring in the mid right lung field. There is a cystic area in the right upper lung field 2 large septated cystic areas in the right lower lung. There is pleural effusion present in the right lower lung field that abuts against the diaphragm and involves the costophrenic angle. For comparison chest x-ray done in July 2013 shows septated bullae without pleural effusions appear Lab. Electrolytes are normal. Creatinine is 1.0. BUN is 19. Natruretic peptide at admission was 562 and is fallen 445. Troponin is 0.067. Admit white count is 7900 with 83.6 segs and 6.4 lymphs. Today's white count is 8000 with 92.36 which are probably increased secondary to steroids. INR is 1.2 urinalysis shows no evidence of infection. Drug screen is negative. Hematocrit is 43.9. Indices and red blood cell distribution with a normal. Platelets are 147,000 Physical exam. Vital signs. See below. 5 feet 9 inches tall. Weighs approximately 220 pounds. Psychiatric oriented 3. Intelligent. Good historian. Neurological cranial nerves are intact long track motor functions intact sensory exam was not done. Gait is normal. Head eyes ears nose and throat. Pupils irises sclera conjunctiva eyelids are normal. Face is symmetrical with no rashes no masses. Salivary glands are normal. Nares lips and tongue are normal. Neck symmetrical with no masses. Thyroid was not palpated Lymphatics no submandibular cervical supraclavicular or epitrochlear adenopathy Chest is symmetrical no chest wall tenderness I do not hear any wheezes. Heart regular with a lateral PMI cannot hear a definite gallop abdomen is nontender. There is a silver dollar sized hernia to the left of the umbilicus. There is a vertical surgical scar on the abdomen to the left of the umbilicus. and rectal deferred Extremities no clubbing. Patient has +2/4 spongy pedal and pretibial edema to the tibial plateaus bilaterally that on the right is a little more prominent than that on the left. Skin. No cancers or infectious lesions on the face or hands. None seen on the lower feet and lower legs. No other areas of skin examined. The remainder of the physical exam is negative Impression. 1. Lower extremity edema. This appears to be due to fluid overload. The edema does have a spongy quality to it and it could be secondary to his Cardizem. 2. Bilateral pleural effusions. Suspect congestive heart failure 3. Sarcoidosis with large bilateral pulmonary bullae 4. Nontender abdominal hernia 5. Asthma. Plan. 1. Agree with steroids. Patient has underlying asthma. We can probably taper this soon. 2. Agree with antibiotics. With the underlying interstitial scarring from sarcoidosis and huge bullae in his lungs it would be easy to had an infection. 3. Agree with diuresis. 4. Echocardiogram. Patient's followed from a cardiac standpoint by Dr. Cuevas but I do not know what his cardiac diagnosis is 5. Doppler venograms of lower extremities 6. Follow-up lab and 2 view chest x-ray ordered for tomorrow Home Medications Medication Instructions Recorded Confirmed Type Albuterol Inhaler [Proventil 1 puff PO Q3-4H PRN 05/17/16 08/12/16 History Inhaler] Fluticasone/Salmeterol 500-50 2 puff PO QAM 05/17/16 08/12/16 History [Advair 500-50] Albuterol Neb [Proventil Neb] 1 packet PO TID #90 vial 08/15/16 08/12/16 Rx Diltiazem Cd Cap [Cardizem CD] 120 mg PO DAILY #30 capsule 08/15/16 Rx Furosemide Tab [Lasix Tab] 20 mg PO DAILY #30 tablet 08/15/16 Rx Insulin Glargine [Lantus] 20 unit SUBCUT DAILY #100 ml 08/15/16 Rx Levofloxacin Tab [Levaquin Tab] 750 mg PO DAILY #3 tablet 08/15/16 Rx Montelukast Tab [Singulair Tab] 10 mg PO DAILY #30 tablet 08/15/16 Rx Potassium Chloride Cap/Tab [K Dur] 10 meq PO DAILY #30 tablet 08/15/16 Rx Tadalafil [Cialis] 10 mg PO DAILY #10 tablet 08/15/16 Rx metFORMIN [Glucophage] 1,000 mg PO BID W/MEALS #60 tablet 08/15/16 Rx predniSONE TAB [PredniSONE] 40 mg PO DAILY #30 tablet 08/15/16 Rx Allergies Allergy/AdvReac Type Severity Reaction Status Date / Time No Known Allergies Allergy Verified 09/06/16 18:33 Exam (Pulmonay) H&P - Constitutional Vitals: Period Temp Pulse Resp BP Sys/Rowland Pulse Ox Last 24 Hr 97.4 F-98.8 F 87-101 18-25 103-140/63-81 88-100 Medical,Surgical,& Family Hx - Medical History Cardio: History of: Hypertension No history of: Cardiac Dysrhythmia, CAD, AL HEENT: History of: Eye Problem (HAD INJECTION FOR CAPILLARY PROBLEMS IN EYES) Endocrine: History of: Diabetes Mellitus (IDDM) Respiratory: History of: Asthma, Pneumonia, Respiratory Problems (sarcoidosis) Gastrointestinal: History of: GI Problems (hernia) Musculoskeletal: History of: Musculoskeletal Problems (HX FX LEFT LEG) - Surgical History Abdominal Surgeries: Surgical HX of: Abdominal Surgery, Colonoscopy - Family History Family History: Reports;: Family Cancer, Family Diabetes, Family Hypertension - Social History Smoking Status: Never smoker Frequency of Alcohol Use: Rarely Type of Drug Use: None Results - Labs CBC & BMP: 09/07/16 05:08 09/07/16 05:08
--- NOTE | 2016-09-07 13:07 | Ultrasound Report ---
Venous Doppler ultrasound bilateral lower extremities Indication: Edema Comparison: None available Findings: No evidence of echogenic, noncompressible thrombus seen in the visualized veins of the extremities. Color Doppler venous waveform pattern is within normal limits. Impression: No evidence of deep venous thrombosis. Ultrasound images stored and captured. PROCEDURE INTERPRETED AT [facility] DEPARTMENT OF RADIOLOGY Final Report Signed by: Dr. Levy Frazier
--- NOTE | 2016-09-07 15:27 | Hospitalist Progress Note ---
Assessment and Plan (1) Sarcoidosis Status: Chronic Assessment and plan: Continue steroid therapy. States that he is scheduled to see a specialist in [facility] regarding his sarcoidosis. He is not sure whether this is a health therapist or granulator operator. Encouraged him to not miss that appointment. Current Visit: No (2) Acute asthma exacerbation Status: Resolved Assessment and plan: Continue bronchodilators alongside the steroids. Monitor oxygenation Current Visit: No Hospitalist: Subjective Interval history: Patient has been seen interviewed and examined and chart has been reviewed patient was admitted overnight with respiratory distress. He has a history of sarcoidosis the lungs. Is complaining mostly because of leg swelling and I strongly suspect that this patient have right-sided heart failure owing to pulmonary hypertension. He states that he has had an echocardiogram I do not have the report of that at this point. Exam - Constitutional Vitals: Period Temp Pulse Resp BP Sys/Rowland Pulse Ox Last 24 Hr 97.4 F-98.8 F 87-101 18-25 103-140/63-81 88-100 General appearance: over weight - Head Head exam: Present: normocephalic, atraumatic, other (Male pattern baldness) - Eye Eye exam: Present: EOMI Pupils: Present: INGE - ENT ENT exam: Present: normal exam - Neck Neck exam: Present: normal inspection - Respiratory Respiratory exam: Present: clear to auscultation bilaterally, other (Noted wheezing) - Cardiovascular Cardiovascular exam: Present: regular rate and rhythm - GI/Abdominal GI/Abdominal exam: Present: normal bowel sounds, soft - Extremities Exam Extremities exam: Present: full ROM - Back Exam Back exam: Present: normal inspection - Neurological Exam Neurological exam: Present: alert, oriented X3, CN II-XII intact - Psychiatric Psychiatric exam: Present: normal affect, normal mood - Skin Skin exam: Present: normal color, warm, dry Results - Labs CBC & BMP: 09/07/16 05:08 09/07/16 05:08 Lab Results: I have reviewed the past 24 hour labs
--- NOTE | 2016-09-07 15:33 | ECHO Report ---
Joshua Stapleton Exam Date: 09/07/2016 12:27 Referring Physician: Technologist: Juliette Conte Age: 61 Ht (in): 69 Wt (lb): 221 Gender: M Exam Location: [facility] Echo Indications: sarcoidosis, CHF, SOB BP: 115 / 77 HR: 96 Rhythm: Sinus Technical Quality: Fair IMPRESSIONS EF 55-60 %. Septal hypokinesis. Grade I/IV diastolic dysfunction (abnormal relaxation filling pattern), normal to mildly elevated filling pressures. Mildly increased right ventricular size. Moderately increased right atrial size. The left atrium is mildly enlarged. Mildly thickened mitral valve. Trace mitral valve regurgitation. Aortic valve sclerosis. No aortic valve regurgitation. Moderate tricuspid valve regurgitation. PAP50 mmHG. Mild pulmonic valve sclerosis. No pericardial effusion. Normal size aortic root and proximal ascending aorta. MEASUREMENTS (Male / Female) Normal Values 2D ECHO LV Diastolic Diameter PLAX 4.0 cm 4.2 - 5.9 / 3.9 - 5.3 cm LV Systolic Diameter PLAX 2.8 cm LV Fractional Shortening PLAX 30.9 % IVS Diastolic Thickness 1.8 cm 0.6 - 1.0 / 0.6 - 0.9 cm LVPW Diastolic Thickness 1.2 cm 0.6 - 1.0 / 0.6 - 0.9 cm RV Internal Dim ED PLAX 3.3 cm Aortic Root Diameter 2.6 cm LA Systolic Diameter LX 3.9 cm 3.0 - 4.0 / 2.7 - 3.8 cm DOPPLER TR Peak Velocity 288.0 cm/s TR Peak Gradient 33.2 mmHg FINDINGS Left Ventricle EF 55-60 %. Septal hypokinesis. Grade I/IV diastolic dysfunction (abnormal relaxation filling pattern), normal to mildly elevated filling pressures. Right Ventricle Mildly increased right ventricular size. Right Atrium Moderately increased right atrial size. Left Atrium The left atrium is mildly enlarged. Mitral Valve Mildly thickened mitral valve. Trace mitral valve regurgitation. Aortic Valve Aortic valve sclerosis. No aortic valve regurgitation. Tricuspid Valve Morphologically normal tricuspid valve. Moderate tricuspid valve regurgitation. PAP50 mmHG. Pulmonic Valve Mild pulmonic valve sclerosis. Pericardium No pericardial effusion. Aorta Normal size aortic root and proximal ascending aorta. Hernan Cordoba (Electronically Signed) Final Date: 07 September 2016 15:32
[2016-09-07] MEDS: cefTRIAXone 1,000 MG in SODIUM CHLORIDE 0.9% 100 ML IV SCH (17:34)
[2016-09-07] MEDS: MONTELUKAST 10 MG TABLET PO SCH (20:00)
[2016-09-07] MEDS: ENOXAPARIN 40 MG/0.4 ML SYRINGE SUBCUT SCH (20:00)
[2016-09-08] MEDS: ALBUTEROL/IPRATROPIUM 3 ML NEB RESP TX SCH ×4 (00:12→19:19)
[2016-09-08] MEDS: methylPREDNISolone SOD SUC 40 MG/1 ML VIAL IV SCH ×4 (01:03→21:03)
[2016-09-08 06:59] LABS: Basophils % 0.1 % (0.0-0.8); Hematocrit 43.1 VOL% (42.0-52.0); Hemoglobin 13.5 GM/DL (14.0-18.0); Immature Granulocytes % 1.1 %; Immature Granulocytes Absolute 0.14 #; Lymphocytes # 0.2 10*3/uL (1.4-4.0); Lymphocytes % 1.7 % (21.2-54.2); Mean Corpuscular HGB Conc 31.3 GM/DL (32-36); Mean Corpuscular Hemoglobin 30 PG (27-34); Mean Corpuscular Volume 96.6 FL (87-102); Mean Platelet Volume 11.8 FL (9.6-12.0); Monocytes # 0.4 10*3/uL (0.11-0.8); Monocytes % 2.8 % (1.7-12.7); Neutrophils % 94.3 % (38.7-73.9); Platelet Count 142 T/CUMM (130-400); Red Blood Count 4.46 MC/CUMM (3.8-5.5); Red Cell Distribution Width 12.8 % (9.3-17.3); White Blood Count 12.7 T/CUMM (4-12)
[2016-09-08 07:26] LABS: Calcium 7.8 MG/DL (8.5-10.1); Magnesium 2.1 MG/DL (1.8-2.4); Potassium 4.3 MMOL/L (3.5-5.1)
[2016-09-08 07:27] LABS: Band Neutrophils 1 % (0-10); Hypochromasia 1+; Lymphocytes 1 % (20-55); Platelet Estimate Normal; Segmented Neutrophils 96 % (50-85); Total Cells Counted 100
--- NOTE | 2016-09-08 08:33 | XRay Report ---
Exam: XR chest 2V Date: 09/08/2016 4:00 AM Indication: Sarcoidosis CHF Comparison: 09/06/2016 Technical: PA lateral Findings: Cardiomegaly is present. Underlying scarring present within the lung pratt bilaterally with some chronic pleural diaphragmatic reaction in both bases. A superimposed infiltrate cannot be totally excluded in the right midlung zone and left midlung zone. No obvious pneumothorax. External cardiac leads are present. The mediastinum suggest small nodes in the perihilar regions. Impression: 1. Cardiomegaly 2. Underlying pulmonary fibrotic scarring with possible superimposed infiltrates present in the right midlung zone along the lateral margin as well as in the perihilar region as well as in the left midlung zone. No significant interval change PROCEDURE INTERPRETED AT [facility] DEPARTMENT OF RADIOLOGY Final Report Signed by: Dr. Ravin Hagan
[2016-09-08] MEDS: INSULIN REGULAR 100 UNIT/ML SUBCUT SCH ×4 (09:25→21:04)
[2016-09-08] MEDS: PANTOPRAZOLE 40 MG TABLET PO SCH (09:25)
[2016-09-08] MEDS: FUROSEMIDE 40 MG/4 ML VIAL IV SCH ×2 (09:26→16:32)
[2016-09-08] MEDS: FLUTICASONE/SALMETEROL 500-50 DISKUS 14 DOSE INH SCH ×2 (09:28→21:05)
[2016-09-08] MEDS: AZELASTINE NASAL 137 MCG/SPRAY 30 ML BOTTLE BOTH NARES SCH ×2 (11:37→21:05)
--- NOTE | 2016-09-08 12:18 | Pulmonology Progress Note ---
Pulmonary - PN: Subj Interval history: Mohit Seymour, ANP-BC, GNP-BC, acting as scribe for Dr. Ravin Fraogso Mr. Stapleton is a 61-year-old -Welsh male who we saw in initial pulmonary consultation on 09/07/2016. At that time, our impressions were: 1. Lower extremity edema. This appears to be due to fluid overload. The edema does have a spongy quality to it and it could be secondary to his Cardizem. 2. Bilateral pleural effusions. Suspect congestive heart failure 3. Sarcoidosis with large bilateral pulmonary bullae 4. Nontender abdominal hernia 5. Asthma 09/08/2016. The patient was seen today along with Nadine Zuniga RN. His breathing has improved. He continues to have significant lower extremity edema. We have discussed ways to decrease this. Echocardiogram done 09/06/[address] Cordoba showed an EF of 55-60%, septal hypokinesis, grade 1 diastolic dysfunction, mildly increased right ventricular size, moderately increased right atrial size, left atrium is mildly enlarged, mildly thickened mitral valve, trace mitral valve regurgitation, aortic valve sclerosis, no aortic valve regurgitation, moderate tricuspid valve regurgitation, mild pulmonic valve sclerosis, and pulmonary artery pressure of 50 mmHg. Today's chest x-ray shows improvement from admission. Blood cultures are negative at day 1. Medications have been reviewed. We made no changes today. Labs been reviewed. White count is 12,700 with 94.3% segs; H&H 13.5/43.1; platelet count 142,000; creatinine 0.90, BUN 20, sodium 143, potassium 4.3, magnesium 2.1; BNP 290 Exam (Progress Note) - Constitutional Vitals: Period Temp Pulse Resp BP Sys/Rowland Pulse Ox Last 24 Hr 96.7 F-98.1 F 89-100 16-20 120-134/67-82 90-100 Exam: Chest is symmetrical without wheeze Heart with a lateral PMI, no definite gallop Abdomen is nontender and nondistended; bowel sounds are positive 4 Extremities with approximately +1.5/4 bilateral pedal and pretibial edema; this is improved Psychiatric oriented 3 Neurologic long tract motor function is intact Plan: Agree with present medications. Continue present treatment. Results - Labs CBC & BMP: 09/08/16 06:28 09/09/16 05:35
[2016-09-08] MEDS: cefTRIAXone 1,000 MG in SODIUM CHLORIDE 0.9% 100 ML IV SCH (17:51)
--- NOTE | 2016-09-08 18:01 | Hospitalist Progress Note ---
Hospitalist: Subjective Interval history: SOB improving. Less cough. No fever or chest pain. LE edema slowly improving. Tolerating po. Exam - Constitutional Vitals: Period Temp Pulse Resp BP Sys/Rowland Pulse Ox Last 24 Hr 96.7 F-98.1 F 84-104 16-20 120-134/67-84 87-98 Exam: A and O x 3, speaking in full sentences, NAD RRR 1/6 systolic M diminished with occasional bronchial breath sounds bilaterally nonlabored Soft, NT, ND, +BS Warm no c/c/+1 nonpitting edema Nonfocal neuro exam Results - Labs CBC & BMP: 09/08/16 06:28 09/08/16 06:28 Labs: Blood culture- NGTD - Impressions (1) Acute on chronic diastolic CHF exacerbation/ Moderate TR - IV Lasix. Add Coreg and low dose ACEi. Watch I and O and daily weights. Serial BNP and RFP. Probably can wean to oral lasix by tomorrow (2) Sarcoidosis Status: Chronic Assessment and plan: Continue steroid therapy. States that he is scheduled to see a specialist in [facility] regarding his sarcoidosis. He is not sure whether this is a account manager relief or assistant casino shift manager. Encouraged him to not miss that appointment. Current Visit: No (3) Acute asthma exacerbation Status: improving Assessment and plan: Continue bronchodilators with steroids. Probably can start to taper steroids in am. Monitor oxygenation. Blood cultures were sent on admission. F/U results. Current Visit: No (4) Severe Pulmonary hypertension - MGt per pulm (5) Suspect VASYL - needs an outpt sleep study on dc D/W pt and and charge nurse and all questions answered.
[2016-09-08] MEDS: CARVEDILOL 6.25 MG TABLET PO SCH (21:04)
[2016-09-08] MEDS: MONTELUKAST 10 MG TABLET PO SCH (21:04)
[2016-09-08] MEDS: ENOXAPARIN 40 MG/0.4 ML SYRINGE SUBCUT SCH (21:04)
[2016-09-09] MEDS: methylPREDNISolone SOD SUC 40 MG/1 ML VIAL IV SCH ×3 (03:35→20:32)
[2016-09-09 06:38] LABS: Calcium 7.7 MG/DL (8.5-10.1); Magnesium 2.5 MG/DL (1.8-2.4); Osmolality,Calculated 298.4 MOS/KG (273-304); Potassium 4.1 MMOL/L (3.5-5.1)
[2016-09-09] MEDS: ALBUTEROL/IPRATROPIUM 3 ML NEB RESP TX SCH ×4 (07:27→19:12)
--- NOTE | 2016-09-09 08:45 | Discharge Summary ---
<Leana Grigsby - Last Filed: 09/09/16 09:05> Hospital Course - Hospital Course Hospital Course: Mr. Stapleton is a 69-year-old black oxygen dependent male patient who presented to the ED on September 06 with complaints of progressively worsening shortness of breath, wheezing, low sats, and bilateral lower extremity edema. Patient has a past medical history of long standing sarcoidosis, asthma, diabetes, hypertension, and CHF. The patient was admitted to the hospitalist service for further evaluation and treatment. Pulmonology was consulted to assist with the patient's care as he is regularly followed by Dr. Rincon. During the course of the patient's hospital stay, the patient was treated with bronchodilators and steroids for his exacerbation of asthma and sarcoidosis. Chest x-ray was ordered and pt had large bullae. Dopplers were performed to examine lower extremities due to edema; negative for DVT . Daily labs were also used to monitor patient's condition. Patient was diuresed using IV Lasix. The patient's condition has improved. There is a plan in place to change IV Lasix to oral and taper patient off of steroids. Pt. will be discharged. Patient is to follow-up with a specialist in [facility] for sarcoidosis treatment. The patient is instructed to follow-up with primary care provider if symptoms worsen. Specialty Discharge - Follow Up or Referrals Follow up with: George Cuevas MD [Physician] - (Stress test in 2-3 weeks) Ravin Fragoso MD [Physician] - 10/11/16 8:30 am (4 weeks) Discharge Plan - Discharge Data Disposition: Disch To Home/Self Care - Discharge Medications New Carvedilol [Coreg] 6.25 mg PO BID #60 tablet Furosemide Tab [Lasix Tab] 40 mg PO DAILY #30 tablet Lisinopril [Prinivil] 2.5 mg PO DAILY #30 tablet Pantoprazole Tab [Protonix Tab] 40 mg PO DAILY #30 tablet Albuterol Neb [Proventil Neb] 2.5 mg RESP TX RT Q4H PRN #0 PRN Reason: Shortness Of Breath/Wheezing predniSONE TAB [PredniSONE] 40 mg PO BID #21 tablet No Action Furosemide Tab [Lasix Tab] 20 mg PO DAILY #30 tablet Insulin Glargine [Lantus] 20 unit SUBCUT DAILY #100 ml Potassium Chloride Cap/Tab [K Dur] 10 meq PO DAILY #30 tablet metFORMIN [Glucophage] 1,000 mg PO BID W/MEALS #60 tablet Albuterol Neb [Proventil Neb] 1 packet PO TID PRN PRN Reason: Wheezing Fluticasone/Salmeterol 500-50 [Advair 500-50] 2 puff PO QAM Montelukast Tab [Singulair Tab] 10 mg PO DAILY #30 tablet predniSONE TAB [PredniSONE] 10 mg PO DAILY - Follow Up or Referral Follow Up: George Cuevas MD [Physician] - (Stress test in 2-3 weeks) Ravin Fragoso MD [Physician] - 10/11/16 8:30 am (4 weeks) - Forms/Instructions Instructions: Sarcoidosis (DC), Pneumonia (DC) Exam - Constitutional Vitals: Period Temp Pulse Resp BP Sys/Rowland Pulse Ox Last 24 Hr 97.1 F-98.2 F 69-87 14-21 103-114/48-76 84-99 Discharge Results Procedures and tests throughout hospitalization: Pending Orders 09/07/16 11:06 Sputum Culture and Gram Stain Stat 09/11/16 04:00 Basic Metabolic Panel w/Mg IN AM Labs on day of discharge: Labs from last 24 hours 09/10/16 09/10/16 09/10/16 11:53 07:16 06:48 Sodium Potassium Chloride Carbon Dioxide Anion Gap BUN Creatinine GFR Calculation BUN/Creatinine Ratio Glucose POC Glucose 319 H 134 H 148 H Calculated Osmolality Calcium Magnesium B-Natriuretic Peptide 09/10/16 09/10/16 09/09/16 06:28 06:28 20:31 Sodium 146 H Potassium 4.1 Chloride 97 L Carbon Dioxide 44 H Anion Gap 9.1 BUN 24 H Creatinine 0.70 GFR Calculation 146 BUN/Creatinine Ratio 34.00 H Glucose 144 H POC Glucose 392 H Calculated Osmolality 296.6 Calcium 7.6 L Magnesium 2.7 H B-Natriuretic Peptide 330 H 09/09/16 16:05 Sodium Potassium Chloride Carbon Dioxide Anion Gap BUN Creatinine GFR Calculation BUN/Creatinine Ratio Glucose POC Glucose 309 H Calculated Osmolality Calcium Magnesium B-Natriuretic Peptide DS: Provider Date of admission: 09/06/16 20:26 Primary care physician: . No PCP Attending physician on admission: Yo Echevarria MD Consults: 09/09/16 11:24 Consult to Dietitian [CONS] Routine Reason for Dietitian: Diet Recommendations Diet Instruction Consult Comment: CHF Consult to Physician [CONS] Routine Comment: sleep evaluation Consulting Provider: Loren Ibanez Person Notified: byron Date Notified: 09/09/16 Time Notified: 11:55 Discharging clinician: Leana Grigsby NP <Lydia Torrez - Last Filed: 09/10/16 14:00> Hospital Course - Time spent with patient Time with patient DS: Greater than 30 minutes (35 minutes) Diagnosis - Discharge Diagnosis (1) Unspecified sleep apnea Status: Acute (2) Edema of right lower extremity Status: Acute (3) IDDM (insulin dependent diabetes mellitus) Status: Acute (4) Right lower lobe pneumonia Status: Acute (5) Hypertension Status: Chronic (6) Sarcoidosis Status: Chronic (7) Acute asthma exacerbation Status: Resolved Discharge Plan - Discharge Data Condition at Discharge: Stable Discharge Diet: heart healthy Activity: resume usual activities as tolerated, other (Wear oxygen as needed. Weigh self daily. If weight increases or decreases by more than 3 pounds, notify MD.) Contact your physician if you experience:: fever over 101, Difficulty voiding, Redness or swelling, Nausea/Vomiting, Shortness of breath, pain uncontrolled by pain medications Exam - Constitutional Exam: A and O x 3, speaking in full sentences, NAD RRR 1/6 systolic M diminished but clear bilaterally nonlabored Soft, NT, ND, +BS Warm no c/c/+1 nonpitting edema. Compression stockings in place Nonfocal neuro exam
[2016-09-09] MEDS: LISINOPRIL 2.5 MG TABLET PO SCH (09:13)
[2016-09-09] MEDS: PANTOPRAZOLE 40 MG TABLET PO SCH (09:14)
[2016-09-09] MEDS: CARVEDILOL 6.25 MG TABLET PO SCH ×2 (09:14→20:32)
[2016-09-09] MEDS: FUROSEMIDE 40 MG/4 ML VIAL IV SCH (09:14)
[2016-09-09] MEDS: AZELASTINE NASAL 137 MCG/SPRAY 30 ML BOTTLE BOTH NARES SCH ×2 (09:14→20:32)
[2016-09-09] MEDS: INSULIN REGULAR 100 UNIT/ML SUBCUT SCH ×4 (09:14→20:45)
[2016-09-09] MEDS: FLUTICASONE/SALMETEROL 500-50 DISKUS 14 DOSE INH SCH ×2 (09:14→20:31)
--- NOTE | 2016-09-09 11:02 | Hospitalist Progress Note ---
Hospitalist: Subjective Interval history: SOB improving. No cp or SOB. No fever. No nausea or vomiting. No lighteadedness or dizziness. Exam - Constitutional Vitals: Period Temp Pulse Resp BP Sys/Rowland Pulse Ox Last 24 Hr 97.4 F-98.2 F 72-107 12-20 120-178/79-98 92-99 Exam: A and O x 3, speaking in full sentences, NAD RRR 1/6 systolic M diminished but clear bilaterally nonlabored Soft, NT, ND, +BS Warm no c/c/+1 nonpitting edema. Compression stockings in place Nonfocal neuro exam Results - Labs CBC & BMP: 09/08/16 06:28 09/09/16 05:35 - Impressions - Impressions (1) Acute on chronic diastolic CHF exacerbation/ Moderate TR - IV Lasix. Cont Coreg and low dose ACEi. Watch I and O and daily weights. Serial BNP and RFP. Change to oral lasix today. (2) Sarcoidosis Status: Chronic Assessment and plan: Wean IV steroids and probably can change to po tomorrow if pulm agrees. He reports he is scheduled to see a specialist in [facility] regarding his sarcoidosis. He is not sure whether this is a tank filler or lock up worker. Encouraged him to not miss that appointment. Current Visit: No (3) Acute asthma exacerbation Status: improving Assessment and plan: Continue bronchodilators with steroids. Taper steroids. Monitor oxygenation. Blood cultures were sent on admission and show no growth. F/U results. Current Visit: No (4) Severe Pulmonary hypertension - MGt per pulm (5) Suspect VASYL - needs an outpt sleep study on dc D/W pt and nurse manager farm and all questions answered. Specialty Discharge - Follow Up or Referrals
--- NOTE | 2016-09-09 12:34 | Pulmonology Progress Note ---
Pulmonary - PN: Subj Interval history: Mohit Seymour, ANP-BC, GNP-BC, acting as scribe for Dr. Ravin Fragoso Mr. Stapleton is a 61-year-old -[place] male who we saw in initial pulmonary consultation on 09/07/2016. At that time, our impressions were: 1. Lower extremity edema. This appears to be due to fluid overload. The edema does have a spongy quality to it and it could be secondary to his Cardizem. 2. Bilateral pleural effusions. Suspect congestive heart failure 3. Sarcoidosis with large bilateral pulmonary bullae 4. Nontender abdominal hernia 5. Asthma 09/08/2016. The patient was seen today along with Nadine Zuniga RN. His breathing has improved. He continues to have significant lower extremity edema. We have discussed ways to decrease this. Echocardiogram done 09/06/[address] Cordoba showed an EF of 55-60%, septal hypokinesis, grade 1 diastolic dysfunction, mildly increased right ventricular size, moderately increased right atrial size, left atrium is mildly enlarged, mildly thickened mitral valve, trace mitral valve regurgitation, aortic valve sclerosis, no aortic valve regurgitation, moderate tricuspid valve regurgitation, mild pulmonic valve sclerosis, and pulmonary artery pressure of 50 mmHg. Today's chest x-ray shows improvement from admission. 09/09/2016. The patient was seen today along with Nadine Zuniga RN. Mr. Stapleton continues to do well from a pulmonary standpoint. He states that he has an appointment with a sarcoid specialist at [facility] in the next month. We have encouraged him to keep this appointment. The patient had several questions related to dietary recommendations and restrictions related to his heart failure. Will consult dietary to speak with him regarding this. He was scheduled for cardiac stress testing on 09/13/[address] Cuevas. We will reschedule this for 2-[address] There is some question as to whether or not this patient might have obstructive sleep apnea. Given his acute illness and multiple comorbidities, we have consulted Dr. Ibanez for evaluation and recommendations. We have asked the patient to remain off work for 2 weeks. 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 Blood cultures are negative thus far. Medications have been reviewed. We made no changes today. Labs been reviewed. Creatinine 0.0, BUN 24, sodium 147, potassium 4.1, magnesium 2.5; BNP 317 Exam (Progress Note) - Constitutional Vitals: Period Temp Pulse Resp BP Sys/Rowland Pulse Ox Last 24 Hr 97.4 F-98.2 F 72-107 12-20 109-178/72-98 91-99 Exam: Chest is symmetrical without wheeze Heart with a lateral PMI, no definite gallop Abdomen is nontender and nondistended; bowel sounds are positive 4 Extremities with approximately +1/4 bilateral pedal and pretibial edema; this is improved Psychiatric oriented 3 Neurologic long tract motor function is intact Plan: Agree with present medications. Continue present treatment. Consult Dr. Ibanez for sleep evaluation. Consult dietary for recommendations and instruction. From our standpoint, he should be ready for discharge tomorrow. See orders. Results - Labs CBC & BMP: 09/08/16 06:28 09/09/16 05:35 Specialty Discharge - Follow Up or Referrals
--- NOTE | 2016-09-09 13:08 | Sleep Medicine Consult ---
Assessment and Plan (1) Unspecified sleep apnea Status: Acute Assessment and plan: This patient has symptoms quite consistent with obstructive sleep apnea. With his chronic health problems of hypertension and pulmonary hypertension, he certainly needs sleep study done. We will set this up as an outpatient evaluation at the next available date. Thank you for this consult and the opportunity to participate in his care. Current Visit: Yes (2) Hypertension Status: Chronic Assessment and plan: The prevalence rate for obstructive sleep apnea patients with hypertension is 35 %. That rate can be as high as 80% in patients who require 4 or more medications for blood pressure control. Current Visit: No (3) IDDM (insulin dependent diabetes mellitus) Status: Acute Assessment and plan: The prevalence rate for obstructive sleep apnea in patients with type 2 diabetes can be as high as 86%. Those patients with moderate to severe obstructive sleep apnea are at a greater risk for diabetic nephropathy and neuropathy. Compliance with CPAP therapy for these patients can lead to improvement in glycemic control and improvement in insulin sensitivity. Current Visit: No History of Present Illness Chief complaint: Sleep apnea History of present illness: Mr. Stapleton is a 61 year old male with history of pulmonary sarcoidosis and pulmonary hypertension. He has had issues with shortness of breath and lower extremity swelling. During his evaluation, it was noted that he has symptoms concerning for sleep apnea and sleep medicine was consulted. He does have a history of loud snoring and abnormal breathing during sleep. He has very disrupted sleep and has difficulty staying asleep. He will awaken from sleep short of breath and often has to get up related to nocturia. He does have significant sleepiness during the day and easily falls asleep anytime he sits still. He also has been bothered by restlessness of his legs and leg jerks at times. He has never been evaluated for sleep disorder in the past. Home Medications Medication Instructions Recorded Confirmed Type Fluticasone/Salmeterol 500-50 2 puff PO QAM 05/17/16 09/07/16 History [Advair 500-50] Furosemide Tab [Lasix Tab] 20 mg PO DAILY #30 tablet 08/15/16 09/07/16 Rx Insulin Glargine [Lantus] 20 unit SUBCUT DAILY #100 ml 08/15/16 09/07/16 Rx Montelukast Tab [Singulair Tab] 10 mg PO DAILY #30 tablet 08/15/16 09/07/16 Rx Potassium Chloride Cap/Tab [K Dur] 10 meq PO DAILY #30 tablet 08/15/16 09/07/16 Rx metFORMIN [Glucophage] 1,000 mg PO BID W/MEALS #60 tablet 08/15/16 09/07/16 Rx Albuterol Neb [Proventil Neb] 1 packet PO TID PRN 09/07/16 09/07/16 History predniSONE TAB [PredniSONE] 10 mg PO DAILY 09/07/16 09/07/16 History Allergies Allergy/AdvReac Type Severity Reaction Status Date / Time No Known Allergies Allergy Verified 09/06/16 18:33 Review of systems: Otherwise unremarkable from a sleep standpoint. Exam (Pulmonay) H&P - Constitutional Vitals: Period Temp Pulse Resp BP Sys/Rowland Pulse Ox Last 24 Hr 97.4 F-98.2 F 72-107 12-20 109-178/72-98 91-99 Exam: He is alert and responsive in no acute distress. Pupils equal round reactive to light and accommodation. Extraocular movements intact. Oropharynx with a class III Mallampati exam. Neck supple without adenopathy or thyromegaly. No supraclavicular adenopathy is noted. Chest with symmetrical breath sounds without focal wheeze, rhonchi, or rales. Cardiac exam reveals a regular rhythm without murmur or gallop. Abdomen soft nontender without palpable hepatosplenomegaly or mass. Extremities without significant edema. Neurologically, grossly intact. He moves all extremities with good strength. Medical,Surgical,& Family Hx - Medical History Cardio: History of: Hypertension No history of: Cardiac Dysrhythmia, CAD, [place] HEENT: History of: Eye Problem (HAD INJECTION FOR CAPILLARY PROBLEMS IN EYES) Endocrine: History of: Diabetes Mellitus (IDDM) Respiratory: History of: Asthma, Pneumonia, Respiratory Problems (sarcoidosis) Gastrointestinal: History of: GI Problems (hernia) Musculoskeletal: History of: Musculoskeletal Problems (HX FX LEFT LEG) - Surgical History Abdominal Surgeries: Surgical HX of: Abdominal Surgery, Colonoscopy - Family History Family History: Reports;: Family Cancer, Family Diabetes, Family Hypertension - Social History Smoking Status: Never smoker Frequency of Alcohol Use: Rarely Type of Drug Use: None Results - Labs CBC & BMP: 09/08/16 06:28 09/09/16 05:35 Lab Results: I have reviewed the past 24 hour labs Specialty Discharge - Follow Up or Referrals
[2016-09-09] MEDS: FUROSEMIDE 40 MG TABLET PO SCH (15:55)
[2016-09-09] MEDS: cefTRIAXone 1,000 MG in SODIUM CHLORIDE 0.9% 100 ML IV SCH (17:21)
[2016-09-09] MEDS: ENOXAPARIN 40 MG/0.4 ML SYRINGE SUBCUT SCH (20:32)
[2016-09-09] MEDS: MONTELUKAST 10 MG TABLET PO SCH (20:32)
[2016-09-10 07:19] LABS: Calcium 7.6 MG/DL (8.5-10.1); Magnesium 2.7 MG/DL (1.8-2.4); Osmolality,Calculated 296.6 MOS/KG (273-304); Potassium 4.1 MMOL/L (3.5-5.1)
[2016-09-10] MEDS: ALBUTEROL/IPRATROPIUM 3 ML NEB RESP TX SCH ×2 (07:22)
[2016-09-10] MEDS: PANTOPRAZOLE 40 MG TABLET PO SCH (08:53)
[2016-09-10] MEDS: LISINOPRIL 2.5 MG TABLET PO SCH (08:53)
[2016-09-10] MEDS: AZELASTINE NASAL 137 MCG/SPRAY 30 ML BOTTLE BOTH NARES SCH (08:53)
[2016-09-10] MEDS: methylPREDNISolone SOD SUC 40 MG/1 ML VIAL IV SCH (08:53)
[2016-09-10] MEDS: CARVEDILOL 6.25 MG TABLET PO SCH (08:53)
[2016-09-10] MEDS: FLUTICASONE/SALMETEROL 500-50 DISKUS 14 DOSE INH SCH (08:53)
[2016-09-10] MEDS: FUROSEMIDE 40 MG TABLET PO SCH (08:53)
[2016-09-10] MEDS: INSULIN REGULAR 100 UNIT/ML SUBCUT SCH ×2 (08:53→12:49)
--- NOTE | 2016-09-10 11:38 | Pulmonology Progress Note ---
Pulmonary - PN: Subj Interval history: Mohit Seymour, ANP-BC, GNP-BC, acting as scribe for Dr. Ravin Fragoso Mr. Stapleton is a 61-year-old -[place] male who we saw in initial pulmonary consultation on 09/07/2016. At that time, our impressions were: 1. Lower extremity edema. This appears to be due to fluid overload. The edema does have a spongy quality to it and it could be secondary to his Cardizem. 2. Bilateral pleural effusions. Suspect congestive heart failure 3. Sarcoidosis with large bilateral pulmonary bullae 4. Nontender abdominal hernia 5. Asthma 09/08/2016. The patient was seen today along with Nadine Zuniga RN. His breathing has improved. He continues to have significant lower extremity edema. We have discussed ways to decrease this. Echocardiogram done 09/06/[address] Cordoba showed an EF of 55-60%, septal hypokinesis, grade 1 diastolic dysfunction, mildly increased right ventricular size, moderately increased right atrial size, left atrium is mildly enlarged, mildly thickened mitral valve, trace mitral valve regurgitation, aortic valve sclerosis, no aortic valve regurgitation, moderate tricuspid valve regurgitation, mild pulmonic valve sclerosis, and pulmonary artery pressure of 50 mmHg. Today's chest x-ray shows improvement from admission. 09/09/2016. The patient was seen today along with Nadine Zuniga RN. Mr. Stapleton continues to do well from a pulmonary standpoint. He states that he has an appointment with a sarcoid specialist at [facility] in the next month. We have encouraged him to keep this appointment. The patient had several questions related to dietary recommendations and restrictions related to his heart failure. Will consult dietary to speak with him regarding this. He was scheduled for cardiac stress testing on 09/13/[address] Cuevas. We will reschedule this for 2-[address] There is some question as to whether or not this patient might have obstructive sleep apnea. Given his acute illness and multiple comorbidities, we have consulted Dr. Ibanez for evaluation and recommendations. We have asked the patient to remain off work for 2 weeks. 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 09/10/2016. The patient was seen today along with his and Mariela Herrera RN. His breathing has remained stable. His peripheral edema has improved. He has been seen in sleep consultation with Dr. Ibanez. His note has been reviewed. We appreciate his assistance. The patient was scheduled for a overnight polysomnogram as per Dr. Ibanez. We have again told the patient he needs to remain off work for 2 weeks. We have written him an excuse from 02/2017 through 09/26/2016. He can return to work on 09/27/2016. Blood cultures are negative thus far. Medications have been reviewed. We made no changes today. Labs been reviewed. Creatinine 0.70, BUN 24, sodium 146, potassium 4.1, magnesium 2.7; BNP 330 Exam (Progress Note) - Constitutional Vitals: Period Temp Pulse Resp BP Sys/Rowland Pulse Ox Last 24 Hr 97.1 F-98.2 F 69-92 14-21 103-114/48-72 84-99 Exam: Chest is symmetrical without wheeze Heart with a lateral PMI, no definite gallop Abdomen is nontender and nondistended; bowel sounds are positive 4 Extremities with approximately +1/4 bilateral pedal and pretibial edema; this is improved Psychiatric oriented 3 Neurologic long tract motor function is intact Plan: Agree with present medications. Work excuse was written and given to patient. He is stable to discharge from a pulmonary standpoint. We will sign off. Please reconsult as needed. Results - Labs CBC & BMP: 09/08/16 06:28 09/10/16 06:28 Specialty Discharge - Follow Up or Referrals Follow up with: George Cuevas MD [Physician] - (Stress test in 2-3 weeks) Ravin Fragoso MD [Physician] - 10/11/16 8:30 am (4 weeks)
[2016-09-10 12:06] VITALS: BP 112/76
[2016-09-10] MEDS ORDERED: predniSONE 20 MG TABLET PO SCH (21:00)
[2016-09-13] MEDS ORDERED: predniSONE 20 MG TABLET PO SCH (21:00)
[2016-09-16] MEDS ORDERED: predniSONE 10 MG TABLET PO SCH (21:00)
== END 2016-09-10 15:02 | disposition home or self-care (01) | DRG 196 ==
LOC: N.ED 18:25 → N.EDINP 20:26 → SUATTDRO 20:26 → N.EDINP 21:12 → N.5E 21:30
PROVIDERS: ADMIT Internal Medicine Infectious Disease; ATTEND Pediatrics

== ENCOUNTER 2017-01-03 09:25 | Inpatient (IN) ==
[2017-01-03] MEDS ORDERED: ONDANSETRON 4 MG/2 ML VIAL IV STA (10:09)
[2017-01-03] MEDS ORDERED: AZITHROMYCIN INJ 500 MG in SODIUM CHLORIDE 0.9% 250 ML IV STA (10:09)
[2017-01-03] MEDS ORDERED: FUROSEMIDE 100 MG/10 ML VIAL IV STA (10:09)
[2017-01-03] MEDS ORDERED: methylPREDNISolone SOD SUC 125 MG/2 ML VIAL IV STA (10:09)
--- NOTE | 2017-01-03 10:14 | Emergency Department Note ---
Arrival - Arrival Chief Complaint: Shortness of Breath Stated Complaint: breathing ED Nursing Triage Note: c/o having SOB since ., states "feels like fluid build up", states he is taking lasix twice a day, denies having any pain, ankle swelling , leg swelling , wears oxygen at 3lnc continuously Mode of Arrival: Wheelchair Limitations: No Limitations Source: Patient Time Seen by Provider: 01/03/17 10:09 - History of Present Illness HPI Narrative: This 61-year-old black male home O2 dependent presents with problems of 5 days progressive shortness of breath both at rest and on exertion. Associated with this has been pedal edema and nighttime wheeze. The patient does have a complicated pulmonary history including sarcoidosis, sarcoid related asthma, cor pulmonale, and congestive heart failure. He denies any chills, fever, purulence, chest pain, diaphoresis, nausea, or vomiting in association with these symptoms. Onset (ago): day(s) (Patient presents 5 days since onset of symptoms) Allergies/Adverse Reactions: Allergies Allergy/AdvReac Type Severity Reaction Status Date / Time No Known Allergies Allergy Verified 01/03/17 09:38 Home Medications: Home Medications Medication Instructions Recorded Confirmed Type Fluticasone/Salmeterol 500-50 2 puff PO QAM 05/17/16 01/03/17 History [Advair 500-50] Insulin Glargine [Lantus] 20 unit SUBCUT DAILY #100 ml 08/15/16 01/03/17 Rx Montelukast Tab [Singulair Tab] 10 mg PO DAILY #30 tablet 08/15/16 01/03/17 Rx Potassium Chloride Cap/Tab [K Dur] 10 meq PO DAILY #30 tablet 08/15/16 01/03/17 Rx metFORMIN [Glucophage] 1,000 mg PO BID W/MEALS #60 tablet 08/15/16 01/03/17 Rx Carvedilol [Coreg] 6.25 mg PO BID #60 tablet 09/10/16 01/03/17 Rx Lisinopril [Prinivil] 2.5 mg PO DAILY #30 tablet 09/10/16 01/03/17 Rx Furosemide Tab [Lasix Tab] 40 mg PO BID 09/24/16 01/03/17 History predniSONE TAB [PredniSONE] 20 mg PO DAILY 09/24/16 01/03/17 History Albuterol Neb [Proventil Neb] 0.63 mg RESP TX TID PRN 01/03/17 01/03/17 History Fluticasone Propionate 1 spray BOTH NARES DAILY 01/03/17 01/03/17 History [Fluticasone 50 mcg Nasal [place]] Review of System - Review of System 12 point system: reviewed and no additional remarkable complaints except as stated - Review of System Constitutional: Present: as per HPI Respiratory: Present: as per HPI Cardiovascular: Present: as per HPI Gastrointestinal: Present: as per HPI Medical,Surgical,& Family Hx - Medical History Cardio: History of: Hypertension No history of: Cardiac Dysrhythmia, CAD, [place] Neurology: No history of: Seizures HEENT: History of: Eye Problem (HAD INJECTION FOR CAPILLARY PROBLEMS IN EYES) Endocrine: History of: Diabetes Mellitus (IDDM) Respiratory: History of: Asthma, Pneumonia, Respiratory Problems (sarcoidosis) Gastrointestinal: History of: GI Problems (hernia) Musculoskeletal: History of: Musculoskeletal Problems (HX FX LEFT LEG) - Surgical History Abdominal Surgeries: Surgical HX of: Abdominal Surgery, Colonoscopy - Family History Family History: Reports;: Family Cancer, Family Diabetes, Family Hypertension - Social History Smoking Status: Former smoker Frequency of Alcohol Use: None Type of Drug Use: None Exam Physical Examination: GENERAL: Well developed, well nourished black male in no acute distress. HEENT: Normocephalic. No trauma. Moist mucous membranes. EOMI. PERRLA. ENT NML NECK: Supple. No adenopathy. CARDIAC: Regular. No murmurs. Heart rate 96 CHEST: Scattered anterior expiratory wheeze. No respiratory distress. O2 sat 88% ABDOMEN: Soft. Nontender. Active bowel sounds. EXTREMITIES: No trauma. Normal ROM. No pedal edema. SKIN: No diaphoresis. No rash. NEURO: Alert. Neuro intact. No focal deficits. Vital Signs: Vital Signs Temperature 96 F L 01/03/17 10:20 Pulse Rate 96 H 01/03/17 10:20 Respiratory Rate 20 01/03/17 10:20 Blood Pressure 150/105 01/03/17 10:20 O2 Sat by Pulse Oximetry 88 L 01/03/17 09:35 Course - Reevaluation(s) Reevaluation #1: Discussed with patient the need for hospitalization. - Consultations Consultation #1: Discussed with hospitalist service who will admit for further evaluation treatment. Results - Labs CBC & BMP: 01/03/17 10:06 Labs: I have reviewed the laboratory noted the elevated BNP. - Impressions EKG sinus rhythm at 96 with normal FL interval with intraventricular conduction delay. Right axis deviation consistent with pulmonary disease. Nonspecific ST changes with no acute injury pattern noted. - Diagnostic Findings Procedure: Chest x-ray: image reviewed by me, report reviewed by me (Severe parenchymal and pleural scarring but no acute changes.) Disposition Clinical Impression: Congestive failure, Cor pulmonale, O2 dependent pulmonary sarcoid, Asthma Case discussed with: patient, patient's family Disposition: Still a Patient Condition: Guarded Time of Disposition: 11:50
[2017-01-03 10:17] LABS: Basophils # 0.1 10*3/uL (0.0-0.2); Basophils % 0.6 % (0.0-0.8); Eosinophils # 0.2 10*3/uL (0.0-0.87); Eosinophils % 2.4 % (0.00-10.9); Hematocrit 42.6 VOL% (42.0-52.0); Hemoglobin 13.2 GM/DL (14.0-18.0); Immature Granulocytes % 0.8 %; Immature Granulocytes Absolute 0.06 #; Lymphocytes % 12.4 % (21.2-54.2); Mean Corpuscular Hemoglobin 29 PG (27-34); Mean Corpuscular Volume 94.5 FL (87-102); Mean Platelet Volume 12.6 FL (9.6-12.0); Monocytes # 1.2 10*3/uL (0.11-0.8); Monocytes % 15.5 % (1.7-12.7); Neutrophils # 5.3 10*3/uL (1.4-7.4); Neutrophils % 68.3 % (38.7-73.9); Platelet Count 159 T/CUMM (130-400); Red Blood Count 4.51 MC/CUMM (3.8-5.5); Red Cell Distribution Width 12.9 % (9.3-17.3); White Blood Count 7.8 T/CUMM (4-12)
[2017-01-03 10:27] LABS: INR 1.1; PT Patient Result 12.2 SECS; Partial Thromboplastin Time 25.7 SECS (0-40)
[2017-01-03] MEDS ORDERED: ALBUTEROL 2.5 MG/3 ML NEB RESP TX SCH (10:30)
--- NOTE | 2017-01-03 10:34 | XRay Report ---
2 view chest. Indication: Shortness of breath. Comparison: September 24, 2016. The heart is enlarged. The pulmonary vasculature is normal. There is extensive pleural and parenchymal abnormality bilaterally. Osseous structures are stable. Impression: Diffuse severe pleural and parenchymal scarring. No significant interval change. PROCEDURE INTERPRETED AT [facility] DEPARTMENT OF RADIOLOGY Final Report Signed by: Dr. Mai Garcia
--- NOTE | 2017-01-03 11:06 | EKG Report ---
Stationary ECG Study [facility] ER Test Date: 01/03/2017 10:33:35 AM Pat Name: GUY JOAQUIN Department: Room: Gender: M Feather [employer]ovator: : 1955 Requested by: Salomón Ann Order Number: [id number] Reading MD: BRIEN CORADO Intervals [place] Rate: 96 P: 56 AK: 176 QRS: 91 QRSD: 112 T: -10 QT: 344 QTc: 397 Interpretive Statements SINUS RHYTHM BORDERLINE RIGHT AXIS DEVIATION PATTERN CONSISTENT WITH PULMONARY DISEASE MODERATE INTRAVENTRICULAR CONDUCTION DELAY NONSPECIFIC T-WAVE ABNORMALITY Electronically Signed On 01-03-17 14:46:01 CDT by BRIEN CORADO [email or web address]
[2017-01-03] MEDS ORDERED: methylPREDNISolone SOD SUC 125 MG/2 ML VIAL ONE (11:12)
[2017-01-03] MEDS ORDERED: AZITHROMYCIN 500 MG VIAL IV ONE (11:12)
[2017-01-03] MEDS ORDERED: FUROSEMIDE 40 MG/4 ML VIAL ONE (11:12)
[2017-01-03] MEDS ORDERED: ONDANSETRON 4 MG/2 ML VIAL ONE (11:12)
[2017-01-03] MEDS ORDERED: ALBUTEROL 2.5 MG/3 ML NEB RESP TX PRN (11:57)
[2017-01-03] MEDS ORDERED: GLUCAGON 1 MG VIAL IM PRN ×2 (12:12→12:33)
[2017-01-03] MEDS ORDERED: DEXTROSE 50% 25 GM/50 ML SYRINGE IV PRN ×2 (12:12→12:33)
[2017-01-03 12:43] LABS: Alanine Aminotransferase 20 U/L (16-61); Albumin 3.7 G/DL (3.4-5.0); Alkaline Phosphatase 64 U/L (45-117); Aspartate Amino Transferase 19 U/L (0-37); Blood Urea Nitrogen 21 MG/DL (7-18); Calcium 8.9 MG/DL (8.5-10.1); Glucose 64 MG/DL (74-106); Osmolality,Calculated 283.1 MOS/KG (273-304); Potassium 3.8 MMOL/L (3.5-5.1); Sodium 142 MMOL/L (136-145)
[2017-01-03 13:07] LABS: Magnesium 2.1 MG/DL (1.8-2.4); Phosphorous 4.2 MG/DL (2.5-4.9)
--- NOTE | 2017-01-03 13:07 | Hospitalist History & Physical ---
<Julia Robbda - Last Filed: 01/03/17 13:26> Assessment and Plan (1) Sarcoidosis, unspecified Status: Acute Assessment and plan: The patient has a very extensive and complex pulmonary history. Has required multiple admissions in the previous year secondary to complications associated with his sarcoidosis. We will start empiric antibiotic coverage, intravenous corticosteroids, and inhaled bronchodilator treatments. We will consult pulmonology to evaluate and assist during the clinical encounter. Current Visit: Yes (2) IDDM (insulin dependent diabetes mellitus) Status: Acute Assessment and plan: Start Accu-Cheks with sliding scale coverage. Current Visit: No (3) Volume overload Status: Acute Assessment and plan: BNP was noted at 352; the patient is noted to have 2+ pitting edema in the lower extremities. We will gently diurese and monitor closely. Current Visit: No (4) Troponin I above reference range Status: Acute Assessment and plan: Troponin was noted at 0.050; we will obtain serial troponin levels; if positive we will consult cardiology. Current Visit: Yes History of Present Illness Chief complaint: Shortness of breath History of present illness: This is a chronically ill 61-year-old male that presented to the ED at [facility] this morning for the evaluation of shortness of breath. Patient has a very long and complex medical history significant for chronic obstructive pulmonary disease, sarcoidosis, sarcoid related asthma, congestive heart failure, cor pulmonale, insulin-dependent diabetes mellitus, remote nicotine abuse,hypertension, and hiatal hernia. Patient reported no significant surgical history at the time of encounter. Patient reported the onset of symptoms 3 days prior to presentation. Due to the severity of the patient's presenting symptoms, his is present at bedside and served as historian. The reported that she noticed that the patient was having some increase in swelling and she noticed that he was wheezing at night. She reports that the patient is normally on home O2 however his shortness of breath became very severe prompting her to bring him to the ED for further evaluation. The patient was assessed at the time of ED presentation. The patient was noted to be in respiratory distress at the time of presentation. Inhaled bronchodilator treatments were initiated immediately and intravenous diuretics were administered. Labs were obtained; complete blood count reported white blood cell count 7.8, hemoglobin 13.2, hematocrit 42.6, platelet count 159. Coagulation panel reported INR 1.1, PT 12.2, PTT 25.7. Comprehensive metabolic panel reported sodium at 142, potassium 3.8, chloride 94, carbon dioxide 45, BUN 21, creatinine 0.80, glucose 64, calcium 8.9, phosphorus 4.2, magnesium 2.1 , troponin 0 0.050, BNP 352, and albumin 3.7. Chest x-ray reported diffuse pleural and parenchymal scarring. After brief discussion with both and Dr. Frances, the patient will be admitted to the hospitalist service for continuation of care. Due to the severity and complexity of the patient's pulmonary history, a pulmonology consultation has been requested to evaluate and assist during the clinical encounter. Home medications have been reviewed and reconciled. CODE STATUS discussed; patient is a FULL CODE. Home Medications Medication Instructions Recorded Confirmed Type Fluticasone/Salmeterol 500-50 2 puff PO QAM 05/17/16 01/03/17 History [Advair 500-50] Insulin Glargine [Lantus] 20 unit SUBCUT DAILY #100 ml 08/15/16 01/03/17 Rx Montelukast Tab [Singulair Tab] 10 mg PO DAILY #30 tablet 08/15/16 01/03/17 Rx Potassium Chloride Cap/Tab [K Dur] 10 meq PO DAILY #30 tablet 08/15/16 01/03/17 Rx metFORMIN [Glucophage] 1,000 mg PO BID W/MEALS #60 tablet 08/15/16 01/03/17 Rx Carvedilol [Coreg] 6.25 mg PO BID #60 tablet 09/10/16 01/03/17 Rx Lisinopril [Prinivil] 2.5 mg PO DAILY #30 tablet 09/10/16 01/03/17 Rx Furosemide Tab [Lasix Tab] 40 mg PO BID 09/24/16 01/03/17 History predniSONE TAB [PredniSONE] 20 mg PO DAILY 09/24/16 01/03/17 History Albuterol Neb [Proventil Neb] 0.63 mg RESP TX TID PRN 01/03/17 01/03/17 History Fluticasone Propionate 1 spray BOTH NARES DAILY 01/03/17 01/03/17 History [Fluticasone 50 mcg Nasal [place]] Allergies Allergy/AdvReac Type Severity Reaction Status Date / Time No Known Allergies Allergy Verified 01/03/17 09:38 Medical,Surgical,& Family Hx - Medical History Cardio: History of: Hypertension No history of: Cardiac Dysrhythmia, CAD, [place] Neurology: No history of: Seizures HEENT: History of: Eye Problem (HAD INJECTION FOR CAPILLARY PROBLEMS IN EYES) Endocrine: History of: Diabetes Mellitus (IDDM) Respiratory: History of: Asthma, Pneumonia, Respiratory Problems (sarcoidosis) Gastrointestinal: History of: GI Problems (hernia) Musculoskeletal: History of: Musculoskeletal Problems (HX FX LEFT LEG) - Surgical History Abdominal Surgeries: Surgical HX of: Abdominal Surgery, Colonoscopy - Family History Family History: Reports;: Family Cancer, Family Diabetes, Family Hypertension - Social History Smoking Status: Former smoker Frequency of Alcohol Use: None Type of Drug Use: None 12 point system: reviewed and no additional remarkable complaints except as stated Exam - Constitutional Vitals: Period Temp Pulse Resp BP Sys/Rowland Pulse Ox Last 24 Hr 96 F-98.9 F 95-106 18-20 150-150/105-105 88-95 General appearance: normal weight, mild distress - Head Head exam: Present: normal inspection, normocephalic, atraumatic - Eye Eye exam: Present: EOMI. Absent: conjunctival injection Pupils: Present: INGE, normal accommodation - ENT ENT exam: Present: normal exam, normal external ear exam, normal oropharynx - Neck Neck exam: Present: normal inspection. Absent: lymphadenopathy, meningismus, thyromegaly - Respiratory Respiratory exam: Present: accessory muscle use, chest wall tenderness, wheezes. Absent: rales, rhonchi, stridor - Cardiovascular Cardiovascular exam: Present: regular rate and rhythm, tachycardia. Absent: carotid bruit, diastolic murmur, gallop, JVD, rubs, systolic murmur - GI/Abdominal GI/Abdominal exam: Present: normal bowel sounds, soft - Extremities Exam Extremities exam: Present: normal inspection, normal capillary refill, full ROM , edema (+2 pitting edema noted to bilateral lower extremity) - Back Exam Back exam: Present: normal inspection - Neurological Exam Neurological exam: Present: alert, oriented X3, CN II-XII intact - Psychiatric Psychiatric exam: Present: normal affect, normal mood - Skin Skin exam: Present: normal color, warm, dry Results - Labs CBC & BMP: 01/03/17 10:06 01/03/17 11:39 Lab Results: I have reviewed the past 24 hour labs <Bernadette Frances - Last Filed: 01/03/17 16:46> History of Present Illness History of present illness: Mr. Stapleton is a 61 year old male with multiple medical issues now presenting with SOB Monitor bed Cardiac enzymes IV Lasix,ASA Echo Fluid restriction HbA1c level UA, TSH GI/DVT prophylaxis I agree with the other management. Exam - Constitutional Vitals: Period Temp Pulse Resp BP Sys/[place]land Pulse Ox Last 24 Hr 96 F-98.9 F 95-106 18-24 110-150/69-105 88-95 Results - Labs CBC & BMP: 01/03/17 13:12 01/03/17 11:39
[2017-01-03 13:37] LABS: Basophils # 0.1 10*3/uL (0.0-0.2); Basophils % 0.6 % (0.0-0.8); Eosinophils # 0.1 10*3/uL (0.0-0.87); Hematocrit 45.8 VOL% (42.0-52.0); Hemoglobin 13.9 GM/DL (14.0-18.0); Immature Granulocytes % 0.7 %; Immature Granulocytes Absolute 0.07 #; Lymphocytes # 0.9 10*3/uL (1.4-4.0); Lymphocytes % 9.4 % (21.2-54.2); Mean Corpuscular HGB Conc 30.3 GM/DL (32-36); Mean Corpuscular Hemoglobin 29 PG (27-34); Mean Corpuscular Volume 95.2 FL (87-102); Mean Platelet Volume 12.5 FL (9.6-12.0); Monocytes # 0.7 10*3/uL (0.11-0.8); Monocytes % 7.3 % (1.7-12.7); Platelet Count 183 T/CUMM (130-400); Red Blood Count 4.81 MC/CUMM (3.8-5.5); Red Cell Distribution Width 12.8 % (9.3-17.3); White Blood Count 9.9 T/CUMM (4-12)
[2017-01-03 13:52] LABS: Troponin I Only 0.044 NG/ML (0.00-0.045)
[2017-01-03] MEDS: cefTRIAXone 1,000 MG in SODIUM CHLORIDE 0.9% 100 ML IV SCH (13:54)
[2017-01-03] MEDS: ASPIRIN CHEW 81 MG TABLET PO SCH (13:54)
[2017-01-03 13:58] LABS: Free T4 (Free Thyroxine) 1.09 NG/DL (0.76-1.46); Thyroid Stimulating Hormone 0.61 uIU/ml (0.358-3.74)
[2017-01-03] MEDS: PANTOPRAZOLE 40 MG TABLET PO SCH (13:59)
[2017-01-03] MEDS: ALBUTEROL/IPRATROPIUM 3 ML NEB RESP TX SCH ×2 (14:22→19:31)
[2017-01-03] MEDS ORDERED: FUROSEMIDE 40 MG TABLET PO SCH (16:00)
[2017-01-03] MEDS: INSULIN REGULAR 100 UNIT/ML SUBCUT SCH ×3 (16:23→21:04)
[2017-01-03] MEDS: FUROSEMIDE 40 MG/4 ML VIAL IV SCH (17:18)
[2017-01-03] MEDS: methylPREDNISolone SOD SUC 40 MG/1 ML VIAL IV SCH ×2 (17:18→23:37)
[2017-01-03] MEDS: CARVEDILOL 6.25 MG TABLET PO SCH (17:19)
--- NOTE | 2017-01-03 17:32 | ECHO Report ---
Joshua Stapleton Exam Date: 01/03/2017 14:28 Referring Physician: Technologist: Juliette Conte Age: 61 Ht (in): 68 Wt (lb): 213 Gender: M Exam Location: [facility] Echo Indications: volume overload, sarcoidosis, IDDM, elevated troponin, Copd exacerbation, SOB BP: 114 / 78 HR: 100 Rhythm: Sinus Technical Quality: Fair IMPRESSIONS 1. Left ventricle is normal size normal systolic function with ejection fraction 55+%. It worse mild concentric left ventricular hypertrophy. There is intraventricular septal flattening consistent with elevated right-sided pressures and volume overload. 2. Left atrium is normal size. 3. Right ventricle and right atrium are both severely dilated. 4. Mitral valve may be minimally thickened with trace to mild regurgitation. 5. Aortic valve is anatomically function normal. 6. Probably severe tricuspid valve regurgitation. 7. Severely elevated right-sided pressures with an estimated pulmonary pressure of 78 83 mmHg. MEASUREMENTS (Male / Female) Normal Values 2D ECHO LV Diastolic Diameter PLAX 4.0 cm 4.2 - 5.9 / 3.9 - 5.3 cm LV Systolic Diameter PLAX 2.5 cm LV Fractional Shortening PLAX 38.6 % IVS Diastolic Thickness 1.1 cm 0.6 - 1.0 / 0.6 - 0.9 cm LVPW Diastolic Thickness 1.2 cm 0.6 - 1.0 / 0.6 - 0.9 cm Aortic Root Diameter 2.6 cm LA Systolic Diameter LX 4.1 cm 3.0 - 4.0 / 2.7 - 3.8 cm DOPPLER TR Peak Velocity 427.0 cm/s TR Peak Gradient 72.9 mmHg FINDINGS Left Ventricle Normal left ventricular cavity size. Mild concentric left ventricular hypertrophy. Left ventricular ejection fraction is estimated at 55 %. There is anterior ventricular septal flattening. Right Ventricle Severely increased right ventricular size and is severely hypokinetic. Right Atrium Severely increased right atrial size. Left Atrium Normal left atrial size. Mitral Valve Mildly thickened mitral valve with trace to mild mitral regurgitation. Aortic Valve Aortic valve appears to be a tricuspid structure and is without stenosis or regurgitation. Tricuspid Valve Morphologically normal tricuspid valve. Moderate - severe tricuspid valve regurgitation. Tricuspid regurgitation velocities suggest a PAP of 72.9 mmHg + RAP (estimated right-sided pressure of 78-83 mmHg). Pulmonic Valve Morphologically normal pulmonic valve. Trace pulmonary valve regurgitation. Pericardium Small pericardial effusion. Aorta Normal size aortic root and proximal ascending aorta. Jules Kaplan MD (Electronically Signed) Final Date: 03 January 2017 17:31
--- NOTE | 2017-01-03 18:48 | Pulmonology Consult Note ---
History of Present Illness Chief complaint: S OB. LOGAN. Sarcoidosis. PHT. History of present illness: Mr. Stapleton is a 61 year old black male whom I have seen before. He is also had a recent evaluation at [facility]. He has been told that they will call him this week or next week to see if he is on the transplant program. I been asked see this patient in pulmonary consultation for evaluation and treatment Chief complaint. Shortness of breath and dyspnea on exertion. Asthma. Sarcoidosis. Pulmonary hypertension. This patient is seen along with his . His knows a little bit of history. Patient is not able to convey any useful information. He has been on various medicines along the way including Cardizem which was stopped in September by cardiology, Cialis which I think the patient stopped himself. Somewhere along the way he is required a ROCAEL inhibitor. He is also on prednisone 20 mg daily. Patient has a cough. I did not get a straight answer about whether or not he has any sputum production and if he has any hemoptysis. He does have some edema in his lower extremities. He complains of a heaviness in his right upper quadrant and this is reproduced with pressure over his liver which is distended. At the present time the remainder of his review of systems is negative Allergies. None Pneumovax was given 03/14/2013 Home medicines. See list Active medicines. See list. Past history. On August 02, 2006 13 the patient's pulmonary artery pressure was 33.4. Then on September 07 she was 50. Today his pulmonary artery pressure varies between 78 and 83. He has severe tricuspid regurgitation he has dilatation of the right atrium and the right ventral. Patient has a history of asthma. He has biopsy-proven sarcoidosis. He had an appendectomy at age 4. He was at [facility] in April 2016 with acute right lower lung pneumonia and a probable early left lower lung pneumonia. The patient has some traction bullae secondary to his sarcoidosis. He also has had pulmonary edema on several occasions. Social history. Never smoked. Does not use alcohol. High school graduate. He is . Family history. Patient has told me in the past there are no significant diseases per Chest x-ray. Cardiomegaly. Enlarged pulmonary arteries. Mediastinum is somewhat enlarged. Patient has areas of interstitial scarring and multiple large bullae in the upper and lower lungs bilaterally. He has fluid at the costophrenic angles bilaterally and he has fluid in the septi be between the bullae in the right lower lung and left lower lung. This is congestive heart failure Echocardiogram. 01/03/2017. Ejection fraction is 55%. Mild concentric left ventricular hypertrophy. Left atrium is normal size. The right ventricle and right atrium are both severely dilated. There is a trace of mitral regurgitation. Estimated pulmonary artery pressure is 78-83 mmHg. Microbiology. No studies reported. Lab. Natruretic peptide is elevated at 352. Electrolytes are normal. Creatinine is 0.80 BUN is 21. Liver function tests are normal. Troponins are 0.044. White count is 9900 with 81 segs. H&H is 13.9/45.8. Platelets are 183, 000. Thyroid function test are normal. Protein is low at 6.0. Albumin and globulin are normal. Physical exam. Vital signs. See below Psychiatric. Laying flat in bed. Able to talk. Very poor historian. Patient has very few facts about anything and I would suspect that he would know more than this Face. Symmetrical. No edema of the lips or tongue. Neck. Symmetrical. No masses. Thyroid was not palpated. No meningismus. Lymphatics. No submandibular cervical supraclavicular or epitrochlear adenopathy. Venous. Elevated jugular venous pressure. Positive hepatojugular reflux. Veins of the arms are normal. Lower extremities show chronic venous stasis and +1-1/2 over 4 bilateral pedal and pretibial spongy edema Arterial exam. Carotid upstroke is fair. Upper extremity pulses are palpable. Lower extremity pulses are nonpalpable Chest. Hyperinflated. Kyphotic. Moving very little air. No laryngeal wheeze. No definite tracheal wheeze. Definitely not moving enough air to produce peripheral wheezes. No chest wall tenderness. Heart. Far lateral PMI Abdomen. Obese. Liver is 3-1/2 fingerbreadths below the costal margin in the midclavicular line. The liver is tender with pressure and pressure produces a positive hepatojugular reflux. A few bowel sounds were heard. and rectal deferred Neurologic. Cranial nerves are intact. Patient moves all 4 extremities. Sensory exam was not done. Gait was not tested. Skin. Face hands reveal no cancerous or infectious lesions. Edema with chronic venous stasis over the lower extremities. No other areas of skin were examined. The remainder the physical exam is negative. Impression. 1. Pulmonary hypertension with dilated right atrium and right ventricle and right heart failure 2. Pulmonary edema 3. Biopsy-proven sarcoidosis 4. Asthma 5. 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 See past history 7. Insulin-dependent diabetes Plan. 1. Lasix 40 IV push twice daily 2. Agree with steroids 3. Agree with antibiotics 4. Sputum 5. Daily chest x-ray, BMP and BNP 6. ABG 7. Doppler venograms of lower extremities 8. Start Procardia 10 mg p.o. every 8 hours for pulmonary hypertension 9. Depending on what blood pressure does consider stopping ROCAEL inhibitor 10. See Home Medications Medication Instructions Recorded Confirmed Type Fluticasone/Salmeterol 500-50 2 puff PO QAM 05/17/16 01/03/17 History [Advair 500-50] Insulin Glargine [Lantus] 20 unit SUBCUT DAILY #100 ml 08/15/16 01/03/17 Rx Montelukast Tab [Singulair Tab] 10 mg PO DAILY #30 tablet 08/15/16 01/03/17 Rx Potassium Chloride Cap/Tab [K Dur] 10 meq PO DAILY #30 tablet 08/15/16 01/03/17 Rx metFORMIN [Glucophage] 1,000 mg PO BID W/MEALS #60 tablet 08/15/16 01/03/17 Rx Carvedilol [Coreg] 6.25 mg PO BID #60 tablet 09/10/16 01/03/17 Rx Lisinopril [Prinivil] 2.5 mg PO DAILY #30 tablet 09/10/16 01/03/17 Rx Furosemide Tab [Lasix Tab] 40 mg PO BID 09/24/16 01/03/17 History predniSONE TAB [PredniSONE] 20 mg PO DAILY 09/24/16 01/03/17 History Albuterol Neb [Proventil Neb] 0.63 mg RESP TX TID PRN 01/03/17 01/03/17 History Fluticasone Propionate 1 spray BOTH NARES DAILY 01/03/17 01/03/17 History [Fluticasone 50 mcg Nasal [place]] Allergies Allergy/AdvReac Type Severity Reaction Status Date / Time No Known Allergies Allergy Verified 01/03/17 09:38 Exam (Pulmonay) H&P - Constitutional Vitals: Period Temp Pulse Resp BP Sys/[place] Pulse Ox Last 24 Hr 96 F-98.9 F 95-106 18-24 110-150/69-105 88-95 Medical,Surgical,& Family Hx - Medical History Cardio: History of: Hypertension No history of: Cardiac Dysrhythmia, CAD, [place] Neurology: No history of: Seizures HEENT: History of: Eye Problem (HAD INJECTION FOR CAPILLARY PROBLEMS IN EYES) Endocrine: History of: Diabetes Mellitus (IDDM) Respiratory: History of: Asthma, Pneumonia, Respiratory Problems (sarcoidosis) Gastrointestinal: History of: GI Problems (hernia) Musculoskeletal: History of: Musculoskeletal Problems (HX FX LEFT LEG) - Surgical History Abdominal Surgeries: Surgical HX of: Abdominal Surgery, Colonoscopy - Family History Family History: Reports;: Family Cancer, Family Diabetes, Family Hypertension - Social History Smoking Status: Former smoker Frequency of Alcohol Use: None Type of Drug Use: None Results - Labs CBC & BMP: 01/03/17 13:12 01/03/17 11:39 Specialty Discharge - Follow Up or Referrals
[2017-01-03 19:34] LABS: ABG Base Excess 14.8 MMOL/L (-2.5-2.5); ABG Oxygen Saturation 87.1 % (95-100); ABG PH 7.216 (7.35-7.45); ABG PO2 59.3 MM HG (80-95); ABG TCO2 51.7 MMOL/L (23-27)
[2017-01-03 19:37] LABS: ABG PCO2 121.1 MM HG (35-48)
--- NOTE | 2017-01-03 20:20 | Ultrasound Report ---
US venous doppler LE BI Indication: Lower extremity swelling and pain. Comparison: None. Technique: Using a transcutaneous probe, grayscale, spectral Doppler, and color Doppler images of the bilateral lower extremity venous structures were captured and stored. Grayscale images prior to and following compression were obtained. Interrogated venous structures include the bilateral common femoral vein, superficial femoral vein (proximal, mid, and distal), and popliteal vein. Findings: There is no evidence of thrombus within the interrogated venous structures. the interrogated venous segments demonstrate presence of both color flow and spectral flow. Impression: 1. No evidence of venous thrombosis. 01/03/2017 8:17 PM PROCEDURE INTERPRETED AT [facility] DEPARTMENT OF RADIOLOGY Final Report Signed by: Dr. Syed Stephen
[2017-01-03] MEDS: NIFEdipine 10 MG CAPSULE PO SCH (21:03)
[2017-01-04] MEDS: ALBUTEROL/IPRATROPIUM 3 ML NEB RESP TX SCH ×4 (00:30→19:44)
[2017-01-04 03:42] LABS: ABG Base Excess 18.4 MMOL/L (-2.5-2.5); ABG HCO3 52.1 MMOL/L (20-26); ABG Oxygen Saturation 92.5 % (95-100); ABG PH 7.217 (7.35-7.45); ABG PO2 72.9 MM HG (80-95); ABG TCO2 56.2 MMOL/L (23-27)
[2017-01-04 03:47] LABS: ABG PCO2 131.2 MM HG (35-48)
[2017-01-04] MEDS: methylPREDNISolone SOD SUC 40 MG/1 ML VIAL IV SCH ×4 (05:09→22:30)
[2017-01-04] MEDS: ENOXAPARIN 40 MG/0.4 ML SYRINGE SUBCUT SCH ×2 (05:10→22:18)
--- NOTE | 2017-01-04 07:50 | XRay Report ---
XR chest 2V Indication: Sarcoid, pulmonary hypertension Comparison: 03 January 2017 Findings: The heart and mediastinum are normal in size and configuration. The pulmonary vascularity is normal in caliber. Lung volumes are decreased with prominent bronchial markings and extensive parenchymal scarring similar to previous exam. Hazy alveolar density is present in the right lung similar to previous exam. Small effusions and/or chronic pleural thickening are present similar to previous study. No other lung infiltrates, effusions, pneumothorax or other abnormality is demonstrated. Impression: Chronic lung changes, underlying pneumonia cannot be excluded. No significant change. PROCEDURE INTERPRETED AT [facility] DEPARTMENT OF RADIOLOGY Final Report Signed by: Dr. Levy Frazier
[2017-01-04 07:53] LABS: Blood Urea Nitrogen 25 MG/DL (7-18); Calcium 8.5 MG/DL (8.5-10.1); Glucose 184 MG/DL (74-106); Magnesium 2.1 MG/DL (1.8-2.4); Osmolality,Calculated 287.4 MOS/KG (273-304); Potassium 4.8 MMOL/L (3.5-5.1); Sodium 140 MMOL/L (136-145)
[2017-01-04 07:59] LABS: Alanine Aminotransferase 30 U/L (16-61); Albumin 3.5 G/DL (3.4-5.0); Alkaline Phosphatase 87 U/L (45-117); Aspartate Amino Transferase 25 U/L (0-37); Blood Urea Nitrogen 24 MG/DL (7-18); Calcium 8.4 MG/DL (8.5-10.1); Glucose 182 MG/DL (74-106); Magnesium 2.1 MG/DL (1.8-2.4); Osmolality,Calculated 289.3 MOS/KG (273-304); Phosphorous 5.2 MG/DL (2.5-4.9); Potassium 4.8 MMOL/L (3.5-5.1); Sodium 141 MMOL/L (136-145)
[2017-01-04 08:01] LABS: Troponin I Only 0.064 NG/ML (0.00-0.045)
[2017-01-04 08:50] LABS: Hematocrit 42.7 VOL% (42.0-52.0); Immature Granulocytes % 0.7 %; Immature Granulocytes Absolute 0.04 #; Lymphocytes # 0.3 10*3/uL (1.4-4.0); Mean Corpuscular Hemoglobin 29 PG (27-34); Mean Corpuscular Volume 95.7 FL (87-102); Mean Platelet Volume 12.6 FL (9.6-12.0); Monocytes # 0.1 10*3/uL (0.11-0.8); Monocytes % 2.2 % (1.7-12.7); Neutrophils # 5.5 10*3/uL (1.4-7.4); Neutrophils % 92.1 % (38.7-73.9); Platelet Count 164 T/CUMM (130-400); Red Blood Count 4.46 MC/CUMM (3.8-5.5); Red Cell Distribution Width 12.6 % (9.3-17.3)
[2017-01-04 09:00] LABS: Hemoglobin 12.8 GM/DL (14.0-18.0)
[2017-01-04] MEDS ORDERED: INSULIN GLARGINE 100 UNIT/ML SUBCUT SCH ×2 (09:00→13:52)
[2017-01-04 09:07] LABS: Band Neutrophils 3 % (0-10); Hypochromasia 1+; Lymphocytes 6 % (20-55); Segmented Neutrophils 86 % (50-85); Total Cells Counted 100
[2017-01-04 09:08] LABS: Microcytosis Slight; Ovalocytes Slight; Platelet Estimate Adequate
[2017-01-04] MEDS: FLUTICASONE 50 MCG NASAL SPRAY 16 GM BOTTLE BOTH NARES SCH (09:13)
--- NOTE | 2017-01-04 09:14 | Physician Query Form ---
CLICK EDIT DOCUMENT TO SELECT QUERY ANSWER --> OK --> SIGN Katherine Stephen RN, CCDS Certified Clinical Gis Scientist W) [phone] (f) [phone] [email or web address] PROVIDERS: Make your selection(s) from the choices in EACH section by typing an "x" and enter comments in the comment section. Please use your independent medical judgment in providing your response. This request does not imply that any particular answer is desired or expected. CLINICAL INDICATORS: (Providers should not edit this section) The medical record indicates that the patient was admitted with CHF, history sarcoidosis, sarcoid related asthma, "home O2 dependent", the patient was admitted and placed on 2 liters per NC. Based on the above, could you clarify the appropriate diagnosis, if significant , that supports the above abnormalities and additional evaluation, monitoring, and/or treatment rendered: (x ) Patient is being treated or monitored for chronic respiratory failure ( ) Patient is not being treated or monitored for chronic respiratory failure ( ) Other, please specify: ( ) Clinically unable to determine COMMENTS: PLEASE ALSO DOCUMENT RESPONSE IN PROGRESS NOTES AND/OR DISCHARGE SUMMARY Use of terms such as suspected, likely, or probable (associated with a specific diagnosis that is being evaluated, monitored, or treated as if it exists) are acceptable and can be restated in the discharge summary if not ruled out. MTDD
[2017-01-04] MEDS: FUROSEMIDE 40 MG/4 ML VIAL IV SCH ×2 (09:15→17:02)
--- NOTE | 2017-01-04 09:15 | Physician Query Form ---
CLICK EDIT DOCUMENT TO SELECT QUERY ANSWER --> OK --> SIGN Katherine Stephen RN, CCDS Certified Clinical Hog Pusher W) [phone] (f) [phone] [email or web address] PROVIDERS: Make your selection(s) from the choices in EACH section by typing an "x" and enter comments in the comment section. Please use your independent medical judgment in providing your response. This request does not imply that any particular answer is desired or expected. CLINICAL INDICATORS: (Providers should not edit this section) The medical record indicates that the patient was admitted with congestive heart failure, BNP of 352# on the that has increased to 622# on the 8th, "Ejection Fraction is 55%" and the patient is on Lasix IV. Please provide further specificity regarding CHF. ACUITY: (x ) Acute ( ) Chronic ( ) Acute on Chronic ( ) Clinically unable to determine TYPE: ( ) Systolic (HFrEF - heart failure with reduced systolic function/EF) ( ) Diastolic (HFpEF - heart failure with preserved systolic function/EF) ( ) Combined Systolic/Diastolic ( x) Other, please specify: elevated right-sided pressures and volume overload. ( ) Clinically unable to determine ( ) Past Medical History of Systolic CHF ( ) Past Medical History of Diastolic CHF ( ) Clinically unable to determine COMMENTS: PLEASE ALSO DOCUMENT RESPONSE IN PROGRESS NOTES AND/OR DISCHARGE SUMMARY Use of terms such as suspected, likely, or probable (associated with a specific diagnosis that is being evaluated, monitored, or treated as if it exists) are acceptable and can be restated in the discharge summary if not ruled out. MTDD
[2017-01-04] MEDS: NIFEdipine 10 MG CAPSULE PO SCH ×3 (09:20→22:10)
[2017-01-04] MEDS: LISINOPRIL 2.5 MG TABLET PO SCH (09:20)
[2017-01-04] MEDS: CARVEDILOL 6.25 MG TABLET PO SCH (09:20)
[2017-01-04] MEDS: ASPIRIN CHEW 81 MG TABLET PO SCH (09:26)
[2017-01-04] MEDS: POTASSIUM CHLORIDE 10 MEQ TABLET PO SCH (09:27)
[2017-01-04] MEDS: PANTOPRAZOLE 40 MG TABLET PO SCH (09:30)
[2017-01-04 09:59] LABS: Allen Test Positive
[2017-01-04 10:00] LABS: ABG Base Excess 15.2 MMOL/L (-2.5-2.5); ABG HCO3 38.5 MMOL/L (20-26); ABG Oxygen Saturation 71.8 % (95-100); ABG PH 7.272 (7.35-7.45); ABG PO2 41.4 MM HG (80-95); ABG TCO2 43.3 MMOL/L (23-27)
--- NOTE | 2017-01-04 10:12 | Pulmonology Progress Note ---
Pulmonary - PN: Subj Interval history: This is a 61--year-old black male whom I saw in pulmonary consultation on 2016. My impressions were. 1. Pulmonary hypertension with dilated right atrium and right ventricle and right heart failure 2. Pulmonary edema 3. Biopsy-proven sarcoidosis 4. Asthma 5. 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 See past history 7. Insulin-dependent diabetes 01/04/2017. Patient's ABGs are grossly abnormal. Nurse's notes that they call me twice last night and I did not return the call. I was industrial relations commissioner and I returned multiple other calls. I have no record of a call from this floor. This morning his ABGs on 3 L/min oxygen showed a pH of 7.217 PCO2 of 131.2, PO2 of 72.9 and a bicarb of 52.1. I decreased the patient's FiO2 to 24% and in 1 hour follow-up blood gases showed a pH of 7.272, PCO2 of 105, PO2 of 41.4 with an O2 sat of 71.8. Bicarb was 38.5. I will repeat these in another hour and make adjustments on the FiO2 if needed. I have also started this patient on Diamox. He is on Lasix and will probably have to cut that back tomorrow. Today 's chest x-ray shows that he still has pulmonary edema. Creatinine is 1.0 with a BUN of 25 sodium and potassium are normal. Natruretic peptide is 622. White count is 6000. H&H 12.8/42.7. Physical exam. Vital signs. See below Psychiatric. Arousable. Oriented 3 but confused. Neurologic. Cranial nerves are intact long track motor functions intact Face. Symmetrical. No edema of the lips or tongue. Neck. Symmetrical no meningismus. Lymphatics. No submandibular cervical supraclavicular or epitrochlear adenopathy Chest. Hyperinflated with prolonged incomplete expiration. Heart. No gallop Abdomen. Nontender. Positive bowel sounds Lower extremities. +1/4 bilateral pedal and pretibial edema with the spongy character. Skin. No cancerous infectious lesions of the face and hands and lower extremities. No other areas examined. The remainder the physical exam is negative. Plan. 01/03/2007 1. Lasix 40 IV push twice daily 2. Agree with steroids 3. Agree with antibiotics 4. Sputum 5. Daily chest x-ray, BMP and BNP 6. ABG 7. Doppler venograms of lower extremities 8. Start Procardia 10 mg p.o. every 8 hours for pulmonary hypertension 9. Depending on what blood pressure does consider stopping ROCAEL inhibitor 10. See 01/04/2017 1. See today's note above. 2. Diamox 3. Decrease FiO2 4. Repeat ABGs 5. Daily ABGs, chest x-ray and lab. Exam (Progress Note) - Constitutional Vitals: Period Temp Pulse Resp BP Sys/[place]land Pulse Ox Last 24 Hr 96 F-98.9 F 79-106 16-24 102-150/58-105 85-98 Results - Labs CBC & BMP: 01/04/17 07:50 01/04/17 06:45 Specialty Discharge - Follow Up or Referrals
[2017-01-04 11:23] LABS: Allen Test Positive
[2017-01-04 11:28] LABS: ABG Base Excess 1.6 MMOL/L (-2.5-2.5); ABG HCO3 24.8 MMOL/L (20-26); ABG Oxygen Saturation 92.9 % (95-100); ABG PCO2 34.1 MM HG (35-48); ABG PO2 62.4 MM HG (80-95); ABG TCO2 25.9 MMOL/L (23-27)
[2017-01-04] MEDS: cefTRIAXone 1,000 MG in SODIUM CHLORIDE 0.9% 100 ML IV SCH (12:36)
--- NOTE | 2017-01-04 13:46 | Hospitalist Progress Note ---
Assessment and Plan (1) Pulmonary HTN Status: Acute Assessment and plan: with edema and dilated right atrium and right ventricle and right heart failure. Echo showed Left ventricle is normal size normal systolic function with ejection fraction 55+%. It worse mild concentric left ventricular hypertrophy. There is intraventricular septal flattening consistent with elevated right- sided pressures and volume overload. Plan continue with IV diuretics Follow Pulm's recommendations Current Visit: Yes (2) Sarcoidosis, unspecified Status: Acute Assessment and plan: Biopsy-proven sarcoidosis continue with steroids Current Visit: Yes (3) IDDM (insulin dependent diabetes mellitus) Status: Acute Assessment and plan: [id number], increase lantus to 25units qhs, follow response Current Visit: No (4) Hypertension Status: Chronic Assessment and plan: stable Current Visit: No (5) Elevated troponin Status: Resolved Assessment and plan: Echo report noted, will follow the trend Current Visit: No Hospitalist: Subjective Interval history: Patient appeared comfortable, he was talking on the phone. His blood gases are slowly improving. Pulm is following. Exam - Constitutional Vitals: Period Temp Pulse Resp BP Sys/[place] Pulse Ox Last 24 Hr 96.6 F-98.9 F 79-106 16-28 96-119/58-75 74-98 General appearance: no acute distress - Head Head exam: Present: normal inspection - Respiratory Respiratory exam: Present: decreased breath sounds - Cardiovascular Cardiovascular exam: Present: regular rate and rhythm - GI/Abdominal GI/Abdominal exam: Present: normal bowel sounds - Extremities Exam Extremities exam: Present: edema - Neurological Exam Neurological exam: Present: alert, oriented X3 Results - Labs CBC & BMP: 01/04/17 07:50 01/04/17 06:45 Lab Results: I have reviewed the past 24 hour labs Specialty Discharge - Follow Up or Referrals
[2017-01-04] MEDS: AZITHROMYCIN INJ 500 MG in SODIUM CHLORIDE 0.9% 250 ML IV SCH (14:10)
[2017-01-04] MEDS: INSULIN REGULAR 100 UNIT/ML SUBCUT SCH ×4 (14:10→22:17)
[2017-01-04 15:21] LABS: Troponin I Only 0.049 NG/ML (0.00-0.045)
[2017-01-04] MEDS ORDERED: ALBUTEROL 2.5 MG/3 ML NEB RESP TX ONE (15:40)
[2017-01-04 16:08] LABS: Lymphocytes % 3.9 % (21.2-54.2); Mean Corpuscular HGB Conc 29.5 GM/DL (32-36); Mean Corpuscular Hemoglobin 29 PG (27-34); Mean Corpuscular Volume 98.6 FL (87-102); Mean Platelet Volume 12.4 FL (9.6-12.0); Monocytes % 4.7 % (1.7-12.7); Neutrophils % 90.8 % (38.7-73.9); Platelet Count 171 T/CUMM (130-400); Red Blood Count 4.26 MC/CUMM (3.8-5.5); Red Cell Distribution Width 12.5 % (9.3-17.3); White Blood Count 6.6 T/CUMM (4-12)
[2017-01-04 16:09] LABS: Immature Granulocytes % 0.6 %; Immature Granulocytes Absolute 0.04 #; Lymphocytes # 0.3 10*3/uL (1.4-4.0); Monocytes # 0.3 10*3/uL (0.11-0.8)
[2017-01-04 16:12] LABS: Hemoglobin 12.4 GM/DL (14.0-18.0)
[2017-01-04 16:13] LABS: Blood Urea Nitrogen 31 MG/DL (7-18); Calcium 8.3 MG/DL (8.5-10.1); Glucose 249 MG/DL (74-106); Osmolality,Calculated 289.7 MOS/KG (273-304); Potassium 4.9 MMOL/L (3.5-5.1); Sodium 138 MMOL/L (136-145)
[2017-01-04 16:15] LABS: ABG HCO3 48.9 MMOL/L (20-26); ABG Oxygen Saturation 91.8 % (95-100); ABG PH 7.263 (7.35-7.45); ABG PO2 67.7 MM HG (80-95); ABG TCO2 52.3 MMOL/L (23-27)
[2017-01-04 16:20] LABS: ABG PCO2 110.8 MM HG (35-48)
[2017-01-04 16:25] LABS: Basophils % 0.2 % (0.0-0.8); Hematocrit 41.2 VOL% (42.0-52.0); Hemoglobin 12.4 GM/DL (14.0-18.0); Immature Granulocytes % 0.8 %; Immature Granulocytes Absolute 0.05 #; Lymphocytes # 0.3 10*3/uL (1.4-4.0); Lymphocytes % 4.1 % (21.2-54.2); Mean Corpuscular HGB Conc 30.1 GM/DL (32-36); Mean Corpuscular Hemoglobin 29 PG (27-34); Mean Corpuscular Volume 96.9 FL (87-102); Monocytes # 0.3 10*3/uL (0.11-0.8); Monocytes % 5.4 % (1.7-12.7); Neutrophils # 5.4 10*3/uL (1.4-7.4); Neutrophils % 89.5 % (38.7-73.9); Platelet Count 160 T/CUMM (130-400); Red Blood Count 4.25 MC/CUMM (3.8-5.5); Red Cell Distribution Width 12.5 % (9.3-17.3); White Blood Count 6.1 T/CUMM (4-12)
[2017-01-04 16:27] LABS: Lymphocytes 2 % (20-55); Macrocytosis Slight; Platelet Estimate Normal; Segmented Neutrophils 93 % (50-85); Total Cells Counted 100
[2017-01-04 16:58] LABS: Band Neutrophils 5 % (0-10); Eosinophils 1 % (0-10); Lymphocytes 4 % (20-55); Segmented Neutrophils 88 % (50-85); Total Cells Counted 100
[2017-01-04 16:59] LABS: Platelet Estimate Adequate
[2017-01-04 17:02] LABS: Alanine Aminotransferase 26 U/L (16-61); Albumin 3.3 G/DL (3.4-5.0); Alkaline Phosphatase 82 U/L (45-117); Aspartate Amino Transferase 17 U/L (0-37); Blood Urea Nitrogen 29 MG/DL (7-18); Calcium 8.7 MG/DL (8.5-10.1); Glucose 244 MG/DL (74-106); Osmolality,Calculated 288.7 MOS/KG (273-304); Potassium 4.9 MMOL/L (3.5-5.1); Sodium 138 MMOL/L (136-145); Total Protein 5.8 G/DL (6.4-8.3)
[2017-01-04 17:03] LABS: Troponin I Only 0.053 NG/ML (0.00-0.045)
[2017-01-05] MEDS: ALBUTEROL/IPRATROPIUM 3 ML NEB RESP TX SCH ×4 (00:48→21:13)
[2017-01-05 04:42] LABS: ABG Base Excess 16.8 MMOL/L (-2.5-2.5); ABG HCO3 40.8 MMOL/L (20-26); ABG Oxygen Saturation 94.5 % (95-100); ABG PH 7.301 (7.35-7.45); ABG PO2 77.1 MM HG (80-95); ABG TCO2 43.7 MMOL/L (23-27); Allen Test Positive
[2017-01-05 04:46] LABS: ABG PCO2 98.6 MM HG (35-48)
[2017-01-05] MEDS: methylPREDNISolone SOD SUC 40 MG/1 ML VIAL IV SCH ×3 (06:12→17:39)
[2017-01-05 07:09] LABS: Troponin I Only 0.075 NG/ML (0.00-0.045)
[2017-01-05 07:40] LABS: Calcium 8.7 MG/DL (8.5-10.1); Magnesium 2.3 MG/DL (1.8-2.4); Osmolality,Calculated 290.4 MOS/KG (273-304); Potassium 5.1 MMOL/L (3.5-5.1)
[2017-01-05] MEDS: INSULIN REGULAR 100 UNIT/ML SUBCUT SCH ×3 (08:12→17:38)
--- NOTE | 2017-01-05 08:28 | Hospitalist Progress Note ---
Assessment and Plan (1) Right lower lobe pneumonia Status: Acute Assessment and plan: He continues on intravenous ceftriaxone and azithromycin. He is being followed by pulmonary. Current Visit: No (2) Sarcoidosis Status: Chronic Assessment and plan: Stable. He is being followed by pulmonary. Current Visit: No (3) IDDM (insulin dependent diabetes mellitus) Status: Acute Current Visit: No (4) Sarcoidosis, unspecified Status: Acute Current Visit: Yes (5) Pulmonary HTN Status: Acute Assessment and plan: As above. Current Visit: Yes (6) Acute and chronic respiratory failure Status: Acute Assessment and plan: He appears significantly improved today. Arterial blood gases demonstrate pH 7.301, PCO2 98.6, and PCO2 77.1 on FiO2 32%. He will be seen this morning in follow-up by pulmonary. Current Visit: Yes Qualifiers: Respiratory failure complication: hypercapnia Qualified Code(s): J96.22 - Acute and chronic respiratory failure with hypercapnia Hospitalist: Subjective Interval history: Patient has a previous history of sarcoidosis, pulmonary hypertension, and chronic respiratory failure. He was transferred to the intensive care unit last night because of acute respiratory distress and acute respiratory failure. He has been treated with a Ventimask. He is significantly improved today. He is not presently experiencing any shortness of breath or chest pain. He will be seen today by pulmonary. If acceptable with pulmonary he will be transferred back to medical surgical floor. Exam - Constitutional Vitals: Period Temp Pulse Resp BP Sys/Rowland Pulse Ox Last 24 Hr 96.8 F-98.7 F 74-101 10-39 81-105/46-74 74-98 General appearance: normal weight, no acute distress - Head Head exam: Present: normal inspection - Neck Neck exam: Present: normal inspection - Respiratory Respiratory exam: Present: clear to auscultation bilaterally - Cardiovascular Cardiovascular exam: Present: regular rate and rhythm - GI/Abdominal GI/Abdominal exam: Present: normal bowel sounds, soft, other (Nontender with no palpable masses or hepatosplenomegaly.) - Extremities Exam Extremities exam: Present: normal inspection - Neurological Exam Neurological exam: Present: alert, oriented X3 - Psychiatric Psychiatric exam: Present: normal affect - Skin Skin exam: Present: normal color, warm, intact Results - Labs CBC & BMP: 01/04/17 15:47 01/05/17 05:42 Specialty Discharge - Follow Up or Referrals
--- NOTE | 2017-01-05 08:49 | XRay Report ---
XR chest 2V Indication: Sarcoidosis, pulmonary hypertension Comparison: 04 January 2017 Findings: The heart and mediastinum are normal in size and configuration. The pulmonary vascularity is normal in caliber. Lung volumes are decreased with prominent bronchial and interstitial pulmonary density. Patchy alveolar densities also present similar to previous exam. No new lung infiltrates, effusions, pneumothorax or other abnormality is demonstrated. Impression: No significant change. PROCEDURE INTERPRETED AT [facility] DEPARTMENT OF RADIOLOGY Final Report Signed by: Dr. Levy Frazier
[2017-01-05 09:18] LABS: Allen Test Positive
[2017-01-05 09:19] LABS: ABG Base Excess 15.7 MMOL/L (-2.5-2.5); ABG HCO3 39.6 MMOL/L (20-26); ABG Oxygen Saturation 91.4 % (95-100); ABG PO2 66.2 MM HG (80-95); ABG TCO2 42.2 MMOL/L (23-27)
[2017-01-05 09:21] LABS: ABG PCO2 93.7 MM HG (35-48)
[2017-01-05] MEDS: FUROSEMIDE 40 MG/4 ML VIAL IV SCH (09:41)
[2017-01-05] MEDS: ASPIRIN CHEW 81 MG TABLET PO SCH (10:16)
[2017-01-05] MEDS: PANTOPRAZOLE 40 MG TABLET PO SCH (10:16)
[2017-01-05] MEDS: NIFEdipine 10 MG CAPSULE PO SCH ×2 (10:17→15:32)
[2017-01-05] MEDS: POTASSIUM CHLORIDE 10 MEQ TABLET PO SCH (10:18)
[2017-01-05] MEDS: LISINOPRIL 2.5 MG TABLET PO SCH (10:18)
[2017-01-05] MEDS: FLUTICASONE 50 MCG NASAL SPRAY 16 GM BOTTLE BOTH NARES SCH (10:19)
--- NOTE | 2017-01-05 10:30 | Pulmonology Progress Note ---
Pulmonary - PN: Subj Interval history: This is a 61--year-old black male whom I saw in pulmonary consultation on 2016. My impressions were. 1. Pulmonary hypertension with dilated right atrium and right ventricle and right heart failure 2. Pulmonary edema 3. Biopsy-proven sarcoidosis 4. Asthma 5. 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 See past history 7. Insulin-dependent diabetes 01/04/2017. Patient's ABGs are grossly abnormal. Nurse's notes that they call me twice last night and I did not return the call. I was accountant controller and I returned multiple other calls. I have no record of a call from this floor. This morning his ABGs on 3 L/min oxygen showed a pH of 7.217 PCO2 of 131.2, PO2 of 72.9 and a bicarb of 52.1. I decreased the patient's FiO2 to 24% and in 1 hour follow-up blood gases showed a pH of 7.272, PCO2 of 105, PO2 of 41.4 with an O2 sat of 71.8. Bicarb was 38.5. I will repeat these in another hour and make adjustments on the FiO2 if needed. I have also started this patient on Diamox. He is on Lasix and will probably have to cut that back tomorrow. Today 's chest x-ray shows that he still has pulmonary edema. Creatinine is 1.0 with a BUN of 25 sodium and potassium are normal. Natruretic peptide is 622. White count is 6000. H&H 12.8/42.7. 01/05/2017. On 01/04/2017 we decreased the patient's FiO2 in order to get him to breathe faster and decrease his PCO2. Later in the day a rapid response was called because his O2 sats had dropped and because his blood pressure was low. He was moved to intensive care unit. This morning he is stable. ABGs on FiO2 of 32% showed a pH of 7.301, PCO2 of 98.6, PO2 of 77.1 and a bicarb of 40.8. ABGs on FiO2 28% showed a pH of 7.310, PCO2 of 93.7 and a PO2 is 66.2 with a bicarb of 39.6. Her mother dropped the patient's FiO2 to 26% level and will reevaluate his ABGs. This is a CO2 retainer. Will have to be careful about increasing his FiO2 to much. The previously ordered Diamox on this patient. Is not on his drug list now and I have restarted it this morning. This should gradually help to breathe faster. He has been on Lasix 40 IV push twice a day. He has had right heart failure and he has some pulmonary edema which is atypical because of the abnormalities on his chest x-ray. Creatinine is 1.40. BUN is 38. Sodium potassium chloride are normal. I am going to hold his Lasix this morning. His natruretic peptide is dropped to 375 and this is probably related to his pulmonary hypertension. Medicines have been reviewed and labs been reviewed Physical exam. Vital signs. See below Psychiatric. Arousable. Oriented 3. Less confused and with. Neurologic. Cranial nerves are intact long track motor functions intact Face. Symmetrical. No edema of the lips or tongue. Neck. Symmetrical no meningismus. Lymphatics. No submandibular cervical supraclavicular or epitrochlear adenopathy Chest. Hyperinflated with prolonged incomplete expiration. Heart. No gallop Abdomen. Nontender. Positive bowel sounds Lower extremities. +1/4 bilateral pedal and pretibial edema with the spongy character. Skin. No cancerous infectious lesions of the face and hands and lower extremities. No other areas examined. The remainder the physical exam is negative. Plan. 01/03/2007 1. Lasix 40 IV push twice daily 2. Agree with steroids 3. Agree with antibiotics 4. Sputum 5. Daily chest x-ray, BMP and BNP 6. ABG 7. Doppler venograms of lower extremities 8. Start Procardia 10 mg p.o. every 8 hours for pulmonary hypertension 9. Depending on what blood pressure does consider stopping ROCAEL inhibitor 10. See 01/04/2017 1. See today's note above. 2. Diamox 3. Decrease FiO2 4. Repeat ABGs 5. Daily ABGs, chest x-ray and lab. 01/05/2017. 1. Restart Diamox 2. Check ABGs on FiO2 26%. 3. Daily chest x-ray, ABGs, BMP and BNP Exam (Progress Note) - Constitutional Vitals: Period Temp Pulse Resp BP Sys/[place]land Pulse Ox Last 24 Hr 96.8 F-98.7 F 74-101 10-39 81-123/46-79 74-100 Results - Labs CBC & BMP: 01/04/17 15:47 01/05/17 05:42 Specialty Discharge - Follow Up or Referrals
[2017-01-05 10:35] LABS: Allen Test Positive
[2017-01-05 10:37] LABS: ABG Base Excess 17.5 MMOL/L (-2.5-2.5); ABG HCO3 47.9 MMOL/L (20-26); ABG Oxygen Saturation 84.1 % (95-100); ABG PH 7.333 (7.35-7.45); ABG TCO2 50.7 MMOL/L (23-27)
[2017-01-05 10:41] LABS: ABG PCO2 92.3 MM HG (35-48)
[2017-01-05] MEDS: cefTRIAXone 1,000 MG in SODIUM CHLORIDE 0.9% 100 ML IV SCH (12:06)
[2017-01-05] MEDS: AZITHROMYCIN INJ 500 MG in SODIUM CHLORIDE 0.9% 250 ML IV SCH (12:53)
[2017-01-05] MEDS ORDERED: LIDOCAINE 100 MG/5 ML SYRINGE ONE (17:52)
[2017-01-05] MEDS ORDERED: ATROPINE 1 MG/10 ML SYRINGE ONE (17:52)
[2017-01-05] MEDS ORDERED: EPINEPHrine 1 MG/ML VIAL ONE (17:52)
[2017-01-05] MEDS ORDERED: AMIODARONE 150 MG/3 ML VIAL ONE (17:52)
[2017-01-05 18:29] VITALS: BP 108/69
--- NOTE | 2017-01-05 19:27 | Event Note ---
Called to code in ICU on Mr. Stapleton who was in cardiopulmonary arrest with no spontaneous respiration and pulseless electrical activity. Resuscitation per ACLS protocol was begun. Pharmacologic support was begun as well as intubation with 7-1/2 ET tube without difficulty and positive color change with calorimetry confirm airway placement. The patient initially responded with a palpable rhythm but despite further pharmacologic intervention he degenerated into course fibrillation. Despite numerous attempts at cardioversion as well as persistent extensive drug delivery, the patient failed to respond and in intractable ventricular fibrillation at 6:15 PM
== END 2017-01-05 18:15 | disposition expired | DRG 291 ==
LOC: N.ED 09:25 → SUATTDRO 11:56 → N.EDINP 11:56 → N.2E 12:17 → N.ICU 01-04 16:03
PROVIDERS: ADMIT Internal Medicine